=== PATIENT | female | born 1950 | race Caucasian/White ===

== ENCOUNTER → 2018-01-11 | Outpatient (REF) | payer MEDICARE, OTHER ==
[2018-01-11 12:41] LABS: ANION GAP 9 MEQ/L (8-16); BLOOD UREA NITROGEN 17 MG/DL (7-18); CALCIUM LEVEL 8.4 MG/DL (8.8-10.2); CARBON DIOXIDE LEVEL 29 MEQ/L (21-32); CHLORIDE LEVEL 105 MEQ/L (98-107); CREATININE FOR GFR 1.29 MG/DL (0.55-1.30); GLUCOSE, FASTING 168 MG/DL (70-100); POTASSIUM SERUM 4.3 MEQ/L (3.5-5.1); SODIUM LEVEL 143 MEQ/L (136-145)
[2018-01-11 13:54] LABS: ESTIMATED AVERAGE GLUCOSE 151 MG/DL (60-110); HEMOGLOBIN A1c 6.9 %
== END ==
LOC: M SFHCPLAZ 08:44
DX: E11.9 Type 2 diabetes mellitus without complications (principal); N18.3 Chronic kidney disease, stage 3 (moderate)
CPT/HCPCS: 83036

== ENCOUNTER → 2018-01-14 | Outpatient (CLI) | payer MEDICARE, OTHER | LOC: M WHC 08:12 | DX: N18.3 Chronic kidney disease, stage 3 (moderate) (principal) | CPT/HCPCS: 76775 ==

== ENCOUNTER → 2018-10-07 | Outpatient (CLI) | payer MEDICARE, OTHER ==
--- NOTE | 2018-10-26 16:16 | REPMRS ---
Patient History The patient states she has not had a clinical breast exam in over a year. Patient is postmenopausal and is nulliparous. Family history of breast cancer at age 50 or over in mother, colorectal cancer at age 50 or over in paternal aunt. Digital Woman Screen Mammo: October 07, 2018 - Exam #: [id number] Bilateral CC and MLO view(s) were taken. Technologist: Alba Cain, Technologist Prior study comparison: July 30, 2017, bilateral digital woman screen mammo, [facility]. 2016, bilateral digital mammo screening bilat, performed at [facility]. June 04, 2015, bilateral digital woman screen mammo, performed at [facility]. FINDINGS: There are scattered fibroglandular densities. There are stable nodular densities and benign calcifications bilaterally. There has been no change in the appearance of the mammogram from the prior studies. There is a mild amount of scattered fibroglandular density which is fairly symmetric. There is no interval development of dominant mass, architectural distortion, or clustered microcalcification suggestive of malignancy. 3-D tomosynthesis shows no additional findings. Assessment: BI-RADS/ACR category 2 mammogram. Benign Findings. Recommendation Routine screening mammogram of both breasts in 1 year (for women over age 40). This patient's Lifetime Breast Cancer RIsk is estimated at 17.7 %. This mammogram was interpreted with the aid of an FDA-approved computer-aided dectection system. Electronically Signed By: Beck Pedraza MD 10/26/18 [id number]
== END ==
LOC: M WHC 07:50
PROVIDERS: ATTEND Family Medicine
DX: Z12.31 Encounter for screening mammogram for malignant neoplasm of breast (principal); Z78.0 Asymptomatic menopausal state; Z80.3 Family history of malignant neoplasm of breast

== ENCOUNTER → 2019-01-24 | Outpatient (REF) | payer MEDICARE, OTHER ==
[2019-01-24 12:24] LABS: CALCIUM LEVEL 8.2 MG/DL (8.8-10.2); CREATININE FOR GFR 1.1 MG/DL (0.55-1.30); GLOMERULAR FILTRATION RATE 52.7 (>45); POTASSIUM SERUM 3.8 MEQ/L (3.5-5.1)
== END ==
LOC: M SFHCPLAZ 09:15
PROVIDERS: ATTEND Family Medicine
DX: I10 Essential (primary) hypertension (principal)
CPT/HCPCS: 36415; 80048; G0463

== ENCOUNTER 2019-03-25 10:00 | Day surgery (SDC) | payer MEDICARE, OTHER ==
[~2019-03-25] VITALS: Ht 167.6 cm; Wt 92.4 kg
[~2019-03-25 10:00] MED LIST: ATOR40TA75 PO; B-12100010 PO; BASA100I SQ; BETA0.053 TOP; D 101000 PO; ECOT81TA5 PO; ENAL20TA PO; FERR325T3 PO; FLUTISP; HYDR25TAB PO; LIDOCAINE 2% INJ 100 MG/5 ML SDV (FOR ANES.) As Ordered ONE; MAGN250T7 PO; METF-791 PO; NS 1,000 ML IV ONE; VICT18IN2; VOLT1GEL15 TOP
[2019-03-25] MEDS ORDERED: fentaNYL 100 MCG/2 ML INJECTION (J3010) As Ordered ONE (10:41)
[2019-03-25] MEDS ORDERED: PROPOFOL 200 MG/20 ML VIAL As Ordered ONE (11:08)
--- NOTE | 2019-03-25 11:25 | ROOR ---
Patient Name: Citlalli Kim Procedure Date: 03/25/2019 11:05 AM Date of : 1950 Age: 68 Room: [facility] Gender: Female Note Status: Finalized Procedure: Upper GI endoscopy Indications: Indigestion, Dysphagia, Heartburn Providers: Kal NEWSOME MD Referring MD: Hodan Galvan MD Requesting Provider: Medicines: Monitored Anesthesia Care Complications: No immediate complications. Procedure: Pre-Anesthesia Assessment: - The heart rate, respiratory rate, oxygen saturations, blood pressure, adequacy of pulmonary ventilation, and response to care were monitored throughout the procedure. The Endoscope was introduced through the mouth, and advanced to the second part of duodenum. The upper GI endoscopy was accomplished without difficulty. The patient tolerated the procedure well. Findings: The examined esophagus was normal. The Z-line was regular and was found 33 cm from the incisors. Mild inflammation was found in the gastric antrum. Biopsies were taken with a cold forceps for histology. A medium-sized hiatal hernia was present. Patchy atrophic mucosa was found in the first portion of the duodenum. Biopsies for histology were taken with a cold forceps for evaluation of celiac disease. The exam of the duodenum was otherwise normal. Impression: - Normal esophagus. Z-line regular, 33 cm from the incisors. - Mild antral gastritis. Biopsied. - Medium to large-sized hiatal hernia. - Mild duodenal mucosal atrophy in first portion. Biopsied. Recommendation: - Telephone endoscopist for pathology results in 2 weeks. - Discontinue Zantac (ranitidine). - Use Pepcid (famotidine) 20 mg PO BID. - (the script was sent to your pharmacy on file) Kal Newsome MD Kal NEWSOME MD 03/25/2019 11:25:15 AM Electronically signed by Kal NEWSOME MD Number of Addenda: 0 Note Initiated On: 03/25/2019 11:05 AM Estimated Blood Loss: Estimated blood loss: none.
--- NOTE | 2019-03-25 11:43 | ROOR ---
Patient Name: Citlalli Kim Procedure Date: 03/25/2019 11:05 AM Date of : 1950 Age: 68 Room: [facility] Gender: Female Note Status: Finalized Procedure: Colonoscopy Indications: High risk colon cancer surveillance: Personal history of colonic polyps, Surveillance: Personal history of colonic polyps (unknown histology) on last colonoscopy 5 years ago Providers: Kal NEWSOME MD Referring MD: Hodan Galvan MD Requesting Provider: Medicines: Monitored Anesthesia Care Complications: No immediate complications. Procedure: Pre-Anesthesia Assessment: - The heart rate, respiratory rate, oxygen saturations, blood pressure, adequacy of pulmonary ventilation, and response to care were monitored throughout the procedure. The Colonoscope was introduced through the anus and advanced to the terminal ileum, with identification of the appendiceal orifice and IC valve. The colonoscopy was performed without difficulty. The patient tolerated the procedure well. The quality of the bowel preparation was good. Findings: The perianal and digital rectal examinations were normal. A 5 mm polyp was found in the splenic flexure. The polyp was sessile. The polyp was removed with a cold snare. Resection and retrieval were complete. Mild sigmoid diverticulosis and small internal hemorrhoids. Pendulous/lipomatous ICV. The exam was otherwise without abnormality on direct and retroflexion views. Impression: - One 5 mm polyp at the splenic flexure, removed with a cold snare. Resected and retrieved. - Mild sigmoid diverticulosis and small internal hemorrhoids. - The examination was otherwise normal on direct and retroflexion views. Recommendation: - Repeat colonoscopy in 5 years for surveillance. Kal Newsome MD Kal NEWSOME MD 03/25/2019 11:43:14 AM Electronically signed by Kal NEWSOME MD Number of Addenda: 0 Note Initiated On: 03/25/2019 11:05 AM Estimated Blood Loss: Estimated blood loss: none.
[2019-03-25 12:13] VITALS: BP 124/75
== END 2019-03-25 12:13 | disposition home or self-care (01) ==
LOC: M OPP 10:00
PROVIDERS: ATTEND Internal Medicine Gastroenterology
DX: Z12.11 Encounter for screening for malignant neoplasm of colon (principal); Z86.010 Personal history of colon polyps; K63.5 Polyp of colon; K64.8 Other hemorrhoids; K57.30 Diverticulosis of large intestine without perforation or abscess without bleeding; K29.70 Gastritis, unspecified, without bleeding; K44.9 Diaphragmatic hernia without obstruction or gangrene; K31.89 Other diseases of stomach and duodenum; K30 Functional dyspepsia; R13.10 Dysphagia, unspecified; Z79.82 Long term (current) use of aspirin; Z79.84 Long term (current) use of oral hypoglycemic drugs; Z79.899 Other long term (current) drug therapy; Z87.891 Personal history of nicotine dependence
CPT/HCPCS: 43239; 45385; 88305; J3010

== ENCOUNTER → 2019-10-14 | Outpatient (CLI) | payer MEDICARE, OTHER ==
[~2019-10-14] MED LIST changes: -LIDOCAINE 2% INJ 100 MG/5 ML SDV (FOR ANES.) As Ordered ONE; -NS 1,000 ML IV ONE
[2019-10-14 11:54] LABS: CALCIUM LEVEL 9.2 MG/DL (8.8-10.2); CREATININE FOR GFR 1.24 MG/DL (0.55-1.30); GLOMERULAR FILTRATION RATE 45.9 (>45); POTASSIUM SERUM 3.9 MEQ/L (3.5-5.1)
== END ==
LOC: M LAB 10:50
PROVIDERS: ATTEND Internal Medicine Endocrinology, Diabetes & Metabolism
DX: E11.22 Type 2 diabetes mellitus with diabetic chronic kidney disease (principal)

== ENCOUNTER → 2019-10-26 | Outpatient (CLI) | payer MEDICARE, OTHER ==
[~2019-10-26] MED LIST changes: -METF-791 PO; +METF-838 PO
--- NOTE | 2019-10-26 09:56 | REPMRS ---
Patient History The patient states she has not had a clinical breast exam in over a year. Family history of breast cancer at age 50 or over in mother, colorectal cancer at age 50 or over in paternal aunt. Digital Woman Screen Mammo: October 26, 2019 - Exam #: [id number] Bilateral CC and MLO view(s) were taken. Technologist: Loree Osorio, Technologist Prior study comparison: October 07, 2018, bilateral digital woman screen mammo performed at [facility]. July 30, 2017, bilateral digital woman screen mammo, performed [facility]. 2017, bilateral digital mammo screening bilat, performed at [facility]. FINDINGS: There are scattered fibroglandular densities. The Volpara volumetric breast density category is:B. There has been no change in the appearance of the mammogram from the prior studies. There is a mild amount of scattered fibroglandular density which is fairly symmetric. There is no interval development of dominant mass, architectural distortion, or grouped microcalcification suggestive of malignancy. 3-D tomosynthesis shows no additional findings. Assessment: BI-RADS/ACR category 1 mammogram. Negative Mammogram. Recommendation Routine screening mammogram of both breasts in 1 year (for women over age 40). This patient's Lifetime Breast Cancer Risk is estimated at 16.8 %. This mammogram was interpreted with the aid of an FDA-approved computer-aided dectection system. Electronically Signed By: Beck Pedraza MD 10/26/19 [id number]
== END ==
LOC: M WHC 08:46
PROVIDERS: ATTEND Family Medicine
DX: Z12.31 Encounter for screening mammogram for malignant neoplasm of breast (principal); Z80.3 Family history of malignant neoplasm of breast

== ENCOUNTER → 2020-03-12 | Outpatient (REF) | payer MEDICARE, OTHER ==
[~2020-03-12] MED LIST changes: -ENAL20TA PO; +ENAL20TA11 PO
== END ==
LOC: M LAB REF 17:25
PROVIDERS: ATTEND Physician Assistant
DX: D23.4 Other benign neoplasm of skin of scalp and neck (principal)
CPT/HCPCS: 11102; 88305; G0463

== ENCOUNTER → 2020-03-28 | Outpatient (REF) | payer MEDICARE ==
[2020-03-28 11:17] LABS: FREE T4 1.04 NG/DL (0.76-1.46); THYROID STIMULATING HORMONE 2.1 uIU/ML (0.358-3.740)
== END ==
LOC: M SFHCPLAZ 08:48
PROVIDERS: ATTEND Family Medicine
DX: E01.0 Iodine-deficiency related diffuse (endemic) goiter (principal)

== ENCOUNTER → 2020-03-28 | Outpatient (CLI) | payer MEDICARE ==
--- NOTE | 2020-04-02 11:22 | REPPI ---
RIGHT TIBIA/FIBULA SERIES: 03/28/20. CLINICAL: Right chew pain. TECHNIQUE: AP and lateral views of the right tibia/fibula. FINDINGS: Evidence for prior knee replacement. The osseous structures, joint spaces and surrounding soft tissues are otherwise unremarkable. IMPRESSION: Essentially unremarkable right tibia/fibula radiographs. MTDD
== END ==
LOC: M PLAIMG 08:49
PROVIDERS: ATTEND Family Medicine
DX: M79.661 Pain in right lower leg (principal); Z96.651 Presence of right artificial knee joint; E01.0 Iodine-deficiency related diffuse (endemic) goiter
CPT/HCPCS: 36415; 73590; 84439; 84443; G0463

== ENCOUNTER → 2020-03-30 | Outpatient (CLI) | payer MEDICARE, OTHER ==
--- NOTE | 2020-04-04 16:48 | REP ---
INDICATION: E01.0 THYROMEGALY COMPARISON: None. TECHNIQUE: Rios scale and color evaluation of the thyroid gland using the linear high frequency transducer. FINDINGS: The thyroid gland is heterogeneous, enlarged, and includes multiple bilateral nodules. Isthmus measures 4.3 mm in with. Right lobe measures 5.0 x 2.0 x 1.6 cm with multiple nodules including complex upper pole nodule measuring 1.4 x 1.2 x 0.5 cm, complex midpole nodule measuring 1.5 x 1.2 x 1.2 cm, and complex lower pole nodule measuring 1.1 x 1.3 x 0.9 cm. Left lobe measures 4.9 x 2.5 x 2.9 cm and is dominated by a large complex predominantly cystic lesion with mural nodule and septations measuring 3.4 x 2.9 x 2.4 cm. IMPRESSION: Multinodular goiter with multiple complex indeterminate lesions. <Electronically signed by Kofi Oviedo > 04/04/20 [id number]
== END ==
LOC: M WHC 12:39
PROVIDERS: ATTEND Family Medicine
DX: E04.2 Nontoxic multinodular goiter (principal)

== ENCOUNTER → 2020-05-02 | Outpatient (CLI) | payer MEDICARE ==
[2020-05-02 13:53] LABS: CREATININE FOR GFR 1.31 MG/DL (0.55-1.30); POTASSIUM SERUM 3.9 MEQ/L (3.5-5.1); THYROID STIMULATING HORMONE 2.08 uIU/ML (0.358-3.740)
== END ==
LOC: M WUC 10:18
PROVIDERS: ATTEND Internal Medicine Endocrinology, Diabetes & Metabolism
DX: E11.22 Type 2 diabetes mellitus with diabetic chronic kidney disease (principal); E04.0 Nontoxic diffuse goiter

== ENCOUNTER → 2020-05-31 | Outpatient (CLI) | payer MEDICARE ==
[2020-05-31 14:28] LABS: CALCIUM LEVEL 9.3 MG/DL (8.8-10.2); CREATININE FOR GFR 1.45 MG/DL (0.55-1.30); GLOMERULAR FILTRATION RATE 38.2 (>45); POTASSIUM SERUM 4.4 MEQ/L (3.5-5.1)
== END ==
LOC: M WUC 09:39
PROVIDERS: ATTEND Internal Medicine Endocrinology, Diabetes & Metabolism
DX: E04.0 Nontoxic diffuse goiter (principal)

== ENCOUNTER → 2020-07-26 | Outpatient (CLI) | payer MEDICARE, OTHER ==
[~2020-07-26] MED LIST changes: +HYDR-3490 PO; -HYDR25TAB PO
[2020-07-26 14:50] LABS: CALCIUM LEVEL 8.6 MG/DL (8.8-10.2); CREATININE FOR GFR 1.26 MG/DL (0.55-1.30); POTASSIUM SERUM 4.5 MEQ/L (3.5-5.1)
== END ==
LOC: M WUC 10:04
PROVIDERS: ATTEND Internal Medicine Endocrinology, Diabetes & Metabolism
DX: E11.22 Type 2 diabetes mellitus with diabetic chronic kidney disease (principal)

== ENCOUNTER 2020-09-20 16:20 | Inpatient (IN) | payer OTHER, MEDICARE ==
[~2020-09-20] VITALS: Ht 167.6 cm; Wt 96.5 kg
[~2020-09-20 16:20] MED LIST changes: -VICT18IN2; +VICT18IN2 SC
[2020-09-20 17:04] LABS: BASO # 0.1 10^3/uL (0.0-0.2); BASO % 0.4 % (0.0-1.0); EOS % 0.1 % (0.0-3.0); HEMATOCRIT 40.5 % (36.0-47.0); HEMOGLOBIN 13.2 g/dl (12.0-15.5); LYMPH # 0.9 10^3/uL (1.5-5.0); LYMPH % 5.5 % (24.0-44.0); MEAN CORPUSCULAR HEMOGLOBIN 30.1 pg (27.0-33.0); MEAN CORPUSCULAR HGB CONC 32.6 g/dl (32.0-36.5); MEAN CORPUSCULAR VOLUME 92.5 fl (80.0-96.0); MONO # 0.9 10^3/uL (0.0-0.8); MONO % 5.9 % (2.0-8.0); NEUTROPHILS # 13.5 10^3/uL (1.5-8.5); NEUTROPHILS % 87.4 % (36.0-66.0); PLATELET COUNT, AUTOMATED 229 10^3/uL (150-450); RED BLOOD COUNT 4.38 10^6/uL (4.00-5.40); WHITE BLOOD COUNT 15.5 10^3/uL (4.0-10.0)
[2020-09-20 17:22] LABS: CALCIUM LEVEL 8.7 MG/DL (8.8-10.2); CREATININE FOR GFR 1.16 MG/DL (0.55-1.30); GLOMERULAR FILTRATION RATE 49.5 (>45); POTASSIUM SERUM 5.1 MEQ/L (3.5-5.1)
[2020-09-20] MEDS ORDERED: GLUCOSE 4GM CHEW TABLET PO PRN (17:40)
[2020-09-20] MEDS ORDERED: GLUCAGON INJ 1MG VIAL SC PRN (17:40)
[2020-09-20] MEDS ORDERED: DEXTROSE 50% 50 ML SYRINGE IV PRN (17:40)
[2020-09-20] MEDS ORDERED: ONDANSETRON 4MG/2ML VIAL IV PRN (17:40)
[2020-09-20] MEDS ORDERED: FAMO1TAB11 PO (17:50)
[2020-09-20] MEDS ORDERED: D31000TA2 PO (17:50)
[2020-09-20] MEDS: traMADol 50 MG TAB PO PRN (18:22)
[2020-09-20] MEDS: NS 1,000 ML IV SCH (18:22)
[2020-09-20] MEDS ORDERED: CALCIUM CARBONATE 500 MG CHEW U/D PO PRN (18:30)
--- NOTE | 2020-09-20 18:38 | REP ---
INDICATION: Left humerous fracture. COMPARISON: None. TECHNIQUE: CT of the left shoulder and proximal humerus without IV contrast. FINDINGS: There is an impacted fracture of the surgical neck of the humerus into the humeral head. There is no humeral head dislocation. Additionally, there is an accompanying comminuted fracture of the proximal humeral shaft. The distal humeral shaft fracture fragment is angulated laterally. IMPRESSION: Proximal left humerus fracture as described. <Electronically signed by Denilson Mtz > 09/20/20 [id number]
--- NOTE | 2020-09-20 18:58 | HPEPDOC ---
General Date of Admission Sep 20, 2020 Date of Service: Sep 20, 2020 Chief Complaint The patient is a 69-year-old female admitted with a reason for visit of Arm Injury/Txf From [place]. Source: Patient History of Present Illness Mrs. Kim is a 69-year-old female with the results as type II and osteopenia who comes from [facility] with bilateral humerus fractures. 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 Around 9:15 AM, she was turning and tripped. She fell with outstretched arms. She denies any lightheadedness or dizziness, chest pain, palpitations. She remembers falling and did not blackout. Once she was on the ground, she had pain and did not try to stand up. He was called and she was brought to [facility]. Her left humerus had lateral angulation. Right humerus had comminuted fracture. [facility] spoke with Dr. Lyons, who recommended patient be evaluated in the ED. I was present with Dr. Lyons in seeing the patient. Dr. Lyons discussed risks and benefits of having surgery versus conservative measures with a sling. Patient decided to have right arm treated conservatively and left arm to proceed with open reduction and internal fixation. Patient will be admitted for bilateral humerus fractures. Home Medications Scheduled Aspirin (Ecotrin) 81 Mg Tablet.dr, 81 MG PO DAILY, (Reported) Atorvastatin Calcium (Atorvastatin Calcium) 40 Mg Tablet, 40 MG PO QPM, (Reported) Cholecalciferol (Vitamin D3) (Vitamin D3) 1,000 Unit Tablet, 1,000 UNITS PO QPM, (Reported) Cyanocobalamin (Vitamin B-12) (Vitamin B-12) 1,000 Mcg Capsule, 1,000 MCG PO QPM, (Reported) Enalapril Maleate (Enalapril Maleate) 20 Mg Tablet, 20 MG PO BID, (Reported) Famotidine (Famotidine) 20 Mg Tablet, 20 MG PO BID, (Reported) Ferrous Sulfate (Ferrous Sulfate) 325 Mg Tablet.dr, 325 MG PO DAILY, (Reported) Fluticasone Propionate (Fluticasone Propionate) 16 Gm [place].susp, 1 SPRAY NA DAILY, (Reported) Liraglutide (Victoza 3-John) 0.6 Mg/0.1 Ml Pen.injctr, 1.8 MG SC DAILY, (Reported) Magnesium Oxide (Magnesium) 250 Mg Tablet, 250 MG PO QPM, (Reported) Metformin HCl (Metformin HCl ER) 500 Mg Tab.er.24h, 500 MG PO BID, (Reported) Allergies Coded Allergies: No Known Allergies (Unverified , 03/23/19) Past Medical History Medical History 1. Diabetes mellitus type 2 2. Hyperlipidemia 3. Hypertension 4. GERD 5. Hypomagnesemia 6. Vitamin B12 deficiency 7. Iron deficiency 8. CKD stage III Surgical History 1. Total right knee replacement in August 2016 2. Cholecystectomy 1998 Family History Father: , history of diabetes mellitus type 2 Mother: , history of breast cancer, kidney cancer, coronary artery disease, diabetes mellitus type 2 Social History * Smoker: former Smoker (quit 30 years ago, smoked less than 10 years, was a social smoker) Alcohol: occationally (occasionally drinks wine with dinner) Drugs: denies A-FIB/CHADSVASC A-FIB History Current/History of A-Fib/PAF?: No Review of Systems Constitutional: Denies: Chills, Fever Eyes: Denies: Vision change ENT: Denies: Sore Throat Skin: Denies: Rash Pulmonary: Denies: Dyspnea Cardiovascular: Denies: Chest Pain Gastrointestinal: Reports: Nausea; Denies: Abdominal Pain Genitourinary: Denies: Dysuria Hematologic: Denies: Bruising Musculoskeletal: Reports: Arm Pain (bilaterally) Neurological: Denies: Numbness Psych: Denies: Anxiety, Depression Physical Examination General Exam: Positive: Alert, Cooperative Eye Exam: Positive: EOMI; Negative: Sclera icteric Neck Exam: Positive: Supple Chest Exam: Positive: Clear to auscultation; Negative: Rales, Rhonchi, Wheezing Heart Exam: Positive: Rate Normal, Regular Rhythm Abdomen Exam: Positive: Normal bowel sounds, Soft; Negative: Tenderness Extremity Exam: Positive: Other; Negative: Edema Neuro Exam: Positive: Normal Speech Psych Exam: Positive: Mental status NL, Mood NL Vital Signs Vital Signs Date Time Temp Pulse Resp B/P (MAP) Pulse Ox O2 Delivery O2 Flow Rate FiO2 09/20/20 17:35 85 97 09/20/20 17:30 148/67 (94) 09/20/20 17:05 Room Air 09/20/20 16:44 98.6 18 Laboratory Data Labs 24H Laboratory Tests 2 09/20/20 16:41: Immature Granulocyte % (Auto) 0.7, Neutrophils (%) (Auto) 87.4H, Lymphocytes (%) (Auto) 5.5L, Monocytes (%) (Auto) 5.9, Eosinophils (%) (Auto) 0.1, Basophils (%) (Auto) 0.4, Neutrophils # (Auto) 13.5H, Lymphocytes # (Auto) 0.9L, Monocytes # (Auto) 0.9H, Eosinophils # (Auto) 0.0, Basophils # (Auto) 0.1, Nucleated Red Blood Cells % (auto) 0.0, Anion Gap 9, Glomerular Filtration Rate 49.5, Calcium Level 8.7L CBC/BMP Laboratory Tests 09/20/20 16:41 Assessment/Plan Mrs. Kim is a 69-year-old female with the results as type II and osteopenia who comes from [facility] with bilateral humerus fractures. Orthopedic surgery, Dr. Lyons was consulted. Plan to have right arm treated conservatively and left arm to proceed with open reduction internal fixation. Currently pending OR availability Plan / VTE VTE Prophylaxis Ordered?: Yes Plan Plan 1. Bilateral humerus fractures Secondary to mechanical fall in the setting of osteopenia Continue vitamin D supplementation. Check vitamin D level Start oral calcium Orthopedic surgery following, recommendations appreciated Plan for right arm to be treated conservatively Plan for left arm to proceed with open reduction internal fixation Pain control with acetaminophen and tramadol 2. Osteopenia Demonstrated on imaging Continue vitamin D supplementation and add on calcium supplementation 3. CKD stage III Creatinine at baseline Avoid nephrotoxic agents Anticipate difficulty in eating and drinking due to bilateral arm fractures. Gentle IVF 4. Diabetes mellitus type 2 Hold metformin and Victoza Carbohydrate consistent diet Slight scale insulin 5. Hypertension Continue enalapril 6. DVT prophylaxis Lovenox Disposition: Pending the OR availability PENELOPE ESTEBAN DO Sep 20, 2020 18:58
[2020-09-20 19:08] LABS: INR 1.05; PARTIAL THROMBOPLASTIN TIME 28.1 SECONDS (24.2-38.5); PROTHROMBIN TIME 13.9 SECONDS (12.5-14.3)
[2020-09-20] MEDS: ACETAMINOPHEN TAB 650MG DOSE (2X325MG) PO PRN (19:30)
[2020-09-20 22:00] VITALS: BP 129/85
[2020-09-20] MEDS: HumaLOG INSULIN (NovoLOG) PER UNIT SC SCH (22:13)
[2020-09-20] MEDS ORDERED: MORPHINE 2 MG/ML 1ML VIAL (J2270) IV ONE (23:25)
[2020-09-20] MEDS: VITAMIN D 1,000 INTERNATIONAL UNITS TABLET PO SCH (23:35)
[2020-09-20] MEDS: FAMOTIDINE 20 MG TAB PO SCH (23:35)
[2020-09-20] MEDS: ATORVASTATIN 20 MG TAB PO SCH (23:35)
[2020-09-20] MEDS: CYANOCOBALAMIN 500 MCG TAB PO SCH (23:36)
[2020-09-20] MEDS: ENALAPRIL MALEATE 10 MG TAB PO SCH (23:41)
[2020-09-21] MEDS: traMADol 50 MG TAB PO PRN ×3 (01:38→16:30)
[2020-09-21] MEDS: NS 1,000 ML IV SCH ×2 (04:53→16:29)
[2020-09-21 04:57] VITALS: BP 142/65
[2020-09-21 07:22] LABS: CALCIUM LEVEL 8.1 MG/DL (8.8-10.2); CREATININE FOR GFR 1.05 MG/DL (0.55-1.30); GLOMERULAR FILTRATION RATE 55.5 (>45); MAGNESIUM LEVEL 1.7 MG/DL (1.8-2.4); POTASSIUM SERUM 4.2 MEQ/L (3.5-5.1)
[2020-09-21] MEDS: FAMOTIDINE 20 MG TAB PO SCH ×2 (07:57→21:04)
[2020-09-21] MEDS: HumaLOG INSULIN (NovoLOG) PER UNIT SC SCH ×4 (07:57→21:00)
[2020-09-21] MEDS: FERROUS SULFATE 325MG TAB PO SCH (07:57)
[2020-09-21] MEDS: FLUTICASONE PROP 0.05% NASAL SPRAY 16 GM (FLONASE) SCH (07:58)
[2020-09-21] MEDS: ENALAPRIL MALEATE 10 MG TAB PO SCH (07:59)
[2020-09-21] MEDS ORDERED: ENOXAPARIN 40MG/0.4ML SYRINGE (J1650 PER 10MG) SC SCH (09:00)
[2020-09-21 09:38] LABS: TOTAL 25(OH) VITAMIN D 36.1 NG/ML (30.0-100.0)
[2020-09-21] MEDS ORDERED: MORPHINE 2 MG/ML 1ML VIAL (J2270) IV PRN (09:45)
--- NOTE | 2020-09-21 10:31 | ECGEPIP ---
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 Nonspecific T wave flattening. No prior tracing for comparison. Clincal correlation advised Electronically Signed on 09-21-2020 10:30:56 EDT by Balbir Gross
--- NOTE | 2020-09-21 11:22 | IPNPDOC ---
Subjective Date Seen The patient was seen on 09/21/20. Subjective Chief Complaint/HPI Mrs. Kim is a 69-year-old female with the results as type II and osteopenia who comes from [facility] with bilateral humerus fractures. This morning, she was complaining of bilateral arm pain. She was trying to eat breakfast and drink from a cup with great difficulty. Otherwise, denies chest pain or dyspnea. Planning to go to the OR tomorrow for ORIF of left arm. Objective Physical Examination General Exam: Positive: Alert, Cooperative Eye Exam: Positive: EOMI; Negative: Sclera icteric Neck Exam: Positive: Supple Chest Exam: Positive: Clear to auscultation; Negative: Rales, Rhonchi, Wheezing Heart Exam: Positive: Rate Normal, Regular Rhythm Abdomen Exam: Positive: Normal bowel sounds, Soft; Negative: Tenderness Extremity Exam: Positive: Other; Negative: Edema Neuro Exam: Positive: Normal Speech Psych Exam: Positive: Mental status NL, Mood NL Assessment /Plan Assessment Mrs. Kim is a 69-year-old female with the results as type II and osteopenia who comes from [facility] with bilateral humerus fractures. Orthopedic surgery, Dr. Lyons was consulted. Plan to have right arm treated conservatively and left arm to proceed with open reduction internal fixation. Planning to go to the OR tomorrow morning Plan/VTE VTE Prophylaxis Ordered?: Yes Plan 1. Bilateral humerus fractures Secondary to mechanical fall in the setting of osteopenia Continue vitamin D supplementation. Check vitamin D level Start oral calcium Orthopedic surgery following, recommendations appreciated Plan for right arm to be treated conservatively Plan for left arm to proceed with open reduction internal fixation Pain control with acetaminophen and tramadol. Morphine for severe pain 2. Osteopenia Demonstrated on imaging Continue vitamin D supplementation and add on calcium supplementation 3. CKD stage III Creatinine at baseline Avoid nephrotoxic agents Anticipate difficulty in eating and drinking due to bilateral arm fractures. Gentle IVF 4. Diabetes mellitus type 2 Hold metformin and Victoza Carbohydrate consistent diet Slight scale insulin 5. Hypertension Hold enalapril tomorrow and 2 days after surgery -Start amlodipine today 6. DVT prophylaxis Lovenox Disposition: Planning for OR tomorrow morning VS, I&O, 24H, Fishbone Vital Signs/I&O Vital Signs Date Time Temp Pulse Resp B/P (MAP) Pulse Ox O2 Delivery O2 Flow Rate FiO2 09/21/20 08:28 17 09/21/20 07:59 187/85 09/21/20 04:57 97.7 80 97 Room Air 09/20/20 21:30 2.0 I&O- Last 24 Hours up to 6 AM 09/21/20 06:00 Intake Total 744 ml Output Total 600 ml Balance 144 ml Laboratory Data 24H LABS Laboratory Tests 2 09/20/20 16:41: Immature Granulocyte % (Auto) 0.7, Neutrophils (%) (Auto) 87.4H, Lymphocytes (%) (Auto) 5.5L, Monocytes (%) (Auto) 5.9, Eosinophils (%) (Auto) 0.1, Basophils (%) (Auto) 0.4, Neutrophils # (Auto) 13.5H, Lymphocytes # (Auto) 0.9L, Monocytes # (Auto) 0.9H, Eosinophils # (Auto) 0.0, Basophils # (Auto) 0.1, Nucleated Red Blood Cells % (auto) 0.0, Anion Gap 9, Glomerular Filtration Rate 49.5, Calcium Level 8.7L 09/20/20 18:34: Prothrombin Time 13.9, Prothromb Time International Ratio 1.05, Activated Partial Thromboplast Time 28.1 09/20/20 22:09: Bedside Glucose (Misc Panel) 189H 09/21/20 06:03: Bedside Glucose (Misc Panel) 153H 09/21/20 06:30: Anion Gap 3L, Glomerular Filtration Rate 55.5, Calcium Level 8.1L, Magnesium Level 1.7L, 25-Hydroxy Vitamin D Total 36.1 CBC/BMP Laboratory Tests 09/20/20 16:41 09/21/20 06:30 PENELOPE ESTEBAN DO Sep 21, 2020 11:22
[2020-09-21] MEDS: amLODIPine 5 MG TAB PO SCH (11:57)
--- NOTE | 2020-09-21 12:26 | CR ---
CONSULTATION DATE: 09/20/2020 CHIEF COMPLAINT: Bilateral proximal humerus fractures. HISTORY OF PRESENT ILLNESS: This 69-year-old female is seen today upon transfer from [facility]. She had a ground-level fall. She tripped and fell on outstretched upper extremities. She was found to have bilateral proximal humerus fractures. She is right-hand dominant. This occurred this morning at 9:20 a.m. She has no past problems or issues with the upper extremities. MEDICAL HISTORY: 1. Diabetes. 2. Hypertension. 3. Dyslipidemia. MEDICATIONS: Nasal spray, ferrous sulfate, aspirin, insulin, famotidine, enalapril, vitamin B12, vitamin D, Lipitor, calcium carbonate as needed. ALLERGIES: No known drug allergies. SURGICAL HISTORY: 1. Total knee arthroplasty 4 years ago. 2. Laparoscopic cholecystectomy 20 years ago. SOCIAL HISTORY: She is retired. 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 Nonsmoker. PHYSICAL EXAMINATION: Well-appearing 69-year-old female. Vital signs are stable. She appears well. Closed injuries to both upper extremities. Normal sensation, motor function to axillary nerve as well as median, radial, and ulnar nerves. Normal motor function of the same plus proximal interosseous nerve (PIN)/anterior interosseous nerve (AIN). Strong radial pulse. Arms warm, well perfused. She has body mass index (BMI) of 30. No other pain or problems. Compartments are soft. No pain at the elbows, hands, or wrists. Radiographs were reviewed from [facility]. There appears to be a 3-part, minimally displaced, minimally angulated fracture of the right proximal humerus. Left shoulder and humerus x-rays demonstrate a proximal one-third, slightly oblique spiral fracture of the upper end of the humerus at the metaphysial area without obvious intra-articular extension. This appears to be aligned in valgus alignment up to 20 degrees. ASSESSMENT AND PLAN: This 69-year-old female has bilateral proximal humerus fractures. We discussed the pros, consultation, risks, and benefits of conservative, nonoperative management for both upper extremity fractures, including splint on the right side as well as cuff and collar with a sugar-tong splint, possible hanging arm cast on the left side. Other options for her would be unilateral or bilateral open reduction, internal fixation for both proximal humerus fractures. One reasonable option for her would be left humerus open reduction, internal fixation alone, as this is the more unstable and likely painful fracture that would possibly benefit more from surgical fixation given the malalignment. We discussed the pros, cons, risks, and benefits of each method of treatment. We discussed surgical management, open reduction, internal fixation of the left humerus fracture plating. Possible surgical risks include, but not limited to, infection, pain, stiffness, weakness, damage to surrounding structures, neurovascular injury, damage to the radial nerve, possible wrist drop can be permanent in select cases, as well as delayed mal or nonunion, damage to surrounding structures, anesthetic complications, blood clots, , and other risks. She wished to go ahead with left humerus open reduction, internal fixation. I consented her and marked the left upper extremity for this. This may be done by myself or possible Dr. Glass , as he is education rn on the weekend on Thursday and Thursday, if he is interested in taking over management. I will phone him and ask him in regard to the case and also let the patient know in regard to the plan as well, possibly either by myself or by a separate physician on the weekend. In the meantime, she will be admitted by the hospitalist service, and I have spoken directly with them. In the meantime, she will be diet as tolerated while we determine timing of surgery. Patient understands and had no further questions. IN the meantime, they will be placing upper extremity bilateral splints and bilateral upper extremity slings and they are able to flex and extend her elbows, but they will need high-level nursing care.
[2020-09-21 14:00] VITALS: BP 155/69
[2020-09-21] MEDS: ACETAMINOPHEN TAB 650MG DOSE (2X325MG) PO PRN (16:30)
--- NOTE | 2020-09-21 20:43 | REPVR ---
PROCEDURE INFORMATION: Exam: CT Right Upper Extremity Without Contrast, Shoulder Exam date and time: 09/21/2020 7:46 PM Age: 69 years old Clinical indication: Injury or trauma; Fall; Blunt trauma (contusions or hematomas); Shoulder; Right; Additional info: Right proximal humerus fracture with 3d recons TECHNIQUE: Imaging protocol: CT of the Right upper extremity without contrast was performed. Exam focused on the shoulder. Radiation optimization: All CT scans at this facility use at least one of these dose optimization techniques: automated exposure control; mA and/or kV adjustment per patient size (includes targeted exams where dose is matched to clinical indication); or iterative reconstruction. COMPARISON: No relevant prior studies available. FINDINGS: Bones/joints: There is a comminuted impacted fracture of the head and surgical neck of the right humerus. The metaphysis is superiorly impacted into the base of the humeral head and along the undersurface of the glenoid. Fractures extend into the lesser and greater tuberosities of the right humerus. Humeral head is mildly inferiorly subluxed. Small bone fragments are present in the glenohumeral joint. Lipohemarthrosis in the glenohumeral joint. Scapula appears intact. Normal alignment at the acromioclavicular joint. Mild acromioclavicular joint osteoarthritis. Soft tissues: Generalized subcutaneous and mild muscular edema in the right shoulder. Calcified and noncalcified nodules in the thyroid gland measuring up to 2.5 cm. IMPRESSION: Comminuted impacted fracture of the proximal humerus with lipohemarthrosis. Mild inferior subluxation of the humeral head. Electronically signed by: Sujit Dougherty On 09/21/2020 20:43:49 PM
--- NOTE | 2020-09-21 20:52 | REPVR ---
PROCEDURE INFORMATION: Exam: XR Right Shoulder Exam date and time: 09/21/2020 6:52 PM Age: 69 years old Clinical indication: Other: Bilateral proximal humerus fracture TECHNIQUE: Imaging protocol: XR Right shoulder. Views: 2 or more views. COMPARISON: No relevant prior studies available. FINDINGS: Bones/joints: There is a comminuted impacted fracture of the humeral head and surgical neck. The greater tuberosity is laterally subluxed 10 mm from the humeral head. The metaphysis is impacted into the humeral head and inferior surface of the glenoid. Humeral head is subluxed 3.0 cm below the acromion. Moderate glenohumeral joint effusion. Normal acromioclavicular alignment. Clavicle and scapula appear intact. Soft tissues: Generalized soft tissue swelling. IMPRESSION: Comminuted impacted fracture of the proximal humerus. PROCEDURE INFORMATION: Exam: XR Left Shoulder Exam date and time: 09/21/2020 6:52 PM Age: 69 years old Clinical indication: Other: Bilateral proximal humerus fracture TECHNIQUE: Imaging protocol: XR Left shoulder. Views: 2 or more views. COMPARISON: No relevant prior studies available. FINDINGS: Bones/joints: There is a comminuted angulated fracture of the humeral diaphysis. Two small bone fragments are displaced into the adjacent soft tissues. Impacted fracture of the surgical neck of the humerus. The metaphysis impacted into the inferior surface of the humeral head. Mild inferior subluxation of the humeral head with small joint effusion. Clavicle and scapula appear intact. Soft tissues: Soft tissue swelling. IMPRESSION: 1. Impacted fracture of the surgical neck of the humerus. 2. Angulated comminuted fracture of the humeral diaphysis. Electronically signed by: Sujit Dougherty On 09/21/2020 20:53:04 PM
[2020-09-21] MEDS: CYANOCOBALAMIN 500 MCG TAB PO SCH (21:04)
[2020-09-21] MEDS: VITAMIN D 1,000 INTERNATIONAL UNITS TABLET PO SCH (21:04)
[2020-09-21] MEDS: ATORVASTATIN 20 MG TAB PO SCH (21:05)
--- NOTE | 2020-09-21 21:54 | REPVR ---
PROCEDURE INFORMATION: Exam: XR Right Humerus Exam date and time: 09/21/2020 6:52 PM Age: 69 years old Clinical indication: Other: Bilateral proximal humerus fracture TECHNIQUE: Imaging protocol: XR Right humerus. Views: 2 or more views. COMPARISON: CT-[facility] WITHOUT CONTRAST LEFT 09/20/2020 6:01 PM FINDINGS: Bones/joints: There is a comminuted impacted fracture of the humeral head and surgical neck of the humerus. The greater tuberosity is laterally subluxed 10 mm from the humeral head. The metaphysis is impacted into the humeral head and inferior surface of the glenoid. Humeral head is subluxed 3.0 cm below the acromion. Moderate glenohumeral joint effusion. Normal acromioclavicular alignment. Clavicle and scapula appear intact. Soft tissues: Generalized soft tissue swelling. IMPRESSION: Comminuted impacted fracture of the proximal humerus. PROCEDURE INFORMATION: Exam: XR Left Humerus Exam date and time: 09/21/2020 6:52 PM Age: 69 years old Clinical indication: Other: Bilateral proximal humerus fracture TECHNIQUE: Imaging protocol: XR Left humerus. Views: 2 or more views. COMPARISON: CT-[facility] WITHOUT CONTRAST LEFT 09/20/2020 6:01 PM FINDINGS: Bones/joints: There is a comminuted angulated fracture of the humeral diaphysis. Two small bone fragments are displaced into the adjacent soft tissues. Impacted fracture of the surgical neck of the humerus. The neural humeral metaphysis impacted into the inferior surface of the humeral head. Mild inferior subluxation of the humeral head with small joint effusion. Clavicle and scapula appear intact. Soft tissues: Soft tissue swelling. IMPRESSION: 1. Impacted fracture of the surgical neck of the humerus. 2. Angulated comminuted fracture of the humeral diaphysis. Electronically signed by: Sujit Dougherty On 09/21/2020 21:54:27 PM
[2020-09-21 22:00] VITALS: BP 164/79
[2020-09-22] MEDS: NS 1,000 ML IV SCH ×3 (05:06→20:20)
[2020-09-22] MEDS: ACETAMINOPHEN TAB 650MG DOSE (2X325MG) PO PRN ×3 (05:07→20:20)
[2020-09-22] MEDS: traMADol 50 MG TAB PO PRN ×3 (05:07→20:19)
[2020-09-22 06:00] VITALS: BP 162/77
[2020-09-22 06:08] LABS: HEMATOCRIT 30.3 % (36.0-47.0); MEAN CORPUSCULAR HEMOGLOBIN 30.3 pg (27.0-33.0); MEAN CORPUSCULAR VOLUME 91.8 fl (80.0-96.0); PLATELET COUNT, AUTOMATED 155 10^3/uL (150-450); WHITE BLOOD COUNT 7.2 10^3/uL (4.0-10.0)
[2020-09-22 06:23] LABS: BLOOD UREA NITROGEN 13 MG/DL (7-18); CARBON DIOXIDE LEVEL 25 MEQ/L (21-32); CHLORIDE LEVEL 107 MEQ/L (98-107); CREATININE FOR GFR 0.93 MG/DL (0.55-1.30); GLOMERULAR FILTRATION RATE > 60.0 (>45); GLUCOSE, FASTING 186 MG/DL (70-100); POTASSIUM SERUM 3.8 MEQ/L (3.5-5.1); SODIUM LEVEL 138 MEQ/L (136-145)
[2020-09-22] MEDS: HumaLOG INSULIN (NovoLOG) PER UNIT SC SCH ×4 (06:39→20:20)
[2020-09-22] MEDS ORDERED: MIDAZOLAM INJ 2MG/2ML VIAL (J2250 PER 1MG) As Ordered ONE (06:43)
[2020-09-22] MEDS ORDERED: fentaNYL 100 MCG/2 ML INJECTION (J3010) As Ordered ONE (06:43)
[2020-09-22] MEDS ORDERED: ePHEDrine SULFATE 25 MG/5 ML(5MG/ML) SYRINGE As Ordered ONE (06:44)
[2020-09-22] MEDS ORDERED: PHENYLephrine 500MCG 5ML (100MCG/ML) SYRINGE As Ordered ONE (06:44)
[2020-09-22] MEDS ORDERED: propofoL 200 MG/20 ML VIAL As Ordered ONE (06:44)
[2020-09-22] MEDS ORDERED: dexameTHASONE 4 MG/ML 1ML VIAL (J1100 PER 1MG) As Ordered ONE (06:44)
[2020-09-22] MEDS ORDERED: SUGAMMADEX SODIUM 500 MG/5 ML VIAL (BRIDION) As Ordered ONE (06:44)
[2020-09-22] MEDS ORDERED: LIDOCAINE 2% 100MG/5ML SDV (FOR ANES.) As Ordered ONE (06:44)
[2020-09-22] MEDS ORDERED: ONDANSETRON 4MG/2ML VIAL As Ordered ONE (06:44)
[2020-09-22] MEDS ORDERED: ROCURONIUM BROMIDE 50 MG/5 ML VIAL As Ordered ONE (06:44)
[2020-09-22] MEDS: ASPIRIN 81MG ENTERIC TABLET PO SCH (09:00)
[2020-09-22] MEDS: FLUTICASONE PROP 0.05% NASAL SPRAY 16 GM (FLONASE) SCH (09:43)
[2020-09-22] MEDS: FERROUS SULFATE 325MG TAB PO SCH (09:43)
[2020-09-22] MEDS: FAMOTIDINE 20 MG TAB PO SCH ×2 (09:43→20:18)
[2020-09-22] MEDS: amLODIPine 5 MG TAB PO SCH (09:44)
--- NOTE | 2020-09-22 12:19 | IPNPDOC ---
Subjective Date Seen The patient was seen on 09/22/20. Subjective Chief Complaint/HPI Mrs. Kim is a 69-year-old female with the results as type II and osteopenia who comes from [facility] with bilateral humerus fractures. This morning, she still has bilateral arm pain, but unchanged from prior. She reports that orthopedic surgery recommended doing surgery to both arms. Planning for left side today and right side for tomorrow. Otherwise, denies chest pain or dyspnea. Objective Physical Examination General Exam: Positive: Alert, Cooperative Eye Exam: Positive: EOMI; Negative: Sclera icteric Neck Exam: Positive: Supple Chest Exam: Positive: Clear to auscultation; Negative: Rales, Rhonchi, Wheezing Heart Exam: Positive: Rate Normal, Regular Rhythm Abdomen Exam: Positive: Normal bowel sounds, Soft; Negative: Tenderness Extremity Exam: Positive: Other; Negative: Edema Neuro Exam: Positive: Normal Speech Psych Exam: Positive: Mental status NL, Mood NL Assessment /Plan Assessment Mrs. Kim is a 69-year-old female with the results as type II and osteopenia who comes from [facility] with bilateral humerus fractures. Orthopedic surgery, Dr. Lyons was consulted. Planning for ORIF to the left and right humerus. Plan/VTE VTE Prophylaxis Ordered?: Yes Plan 1. Bilateral humerus fractures Secondary to mechanical fall in the setting of osteopenia Continue vitamin D supplementation. Check vitamin D level Start oral calcium Orthopedic surgery following, recommendations appreciated Plan for right arm and eft arm to proceed with open reduction internal fixation Pain control with acetaminophen and tramadol. Morphine for severe pain 2. Osteopenia Demonstrated on imaging Continue vitamin D supplementation and add on calcium supplementation 3. CKD stage III Creatinine at baseline Avoid nephrotoxic agents Anticipate difficulty in eating and drinking due to bilateral arm fractures. Gentle IVF 4. Diabetes mellitus type 2 Hold metformin and Victoza Carbohydrate consistent diet Slight scale insulin 5. Hypertension Hold enalapril tomorrow and 2 days after surgery -Start amlodipine today 6. DVT prophylaxis Lovenox Disposition: Planning for OR today and tomorrow. Left arm today. Right arm tomorrow VS, I&O, 24H, Fishbone Vital Signs/I&O Vital Signs Date Time Temp Pulse Resp B/P (MAP) Pulse Ox O2 Delivery O2 Flow Rate FiO2 09/22/20 09:44 83 161/75 09/22/20 06:00 99.0 16 96 Room Air 09/20/20 21:30 2.0 I&O- Last 24 Hours up to 6 AM 09/22/20 06:00 Intake Total 3280 ml Output Total 1900 ml Balance 1380 ml Laboratory Data 24H LABS Laboratory Tests 2 09/21/20 16:18: Bedside Glucose (Misc Panel) 252H 09/21/20 21:20: Bedside Glucose (Misc Panel) 142H 09/22/20 05:48: Nucleated Red Blood Cells % (auto) 0.0, Anion Gap 6L, Glomerular Filtration Rate > 60.0, Calcium Level 8.0L 09/22/20 11:28: Bedside Glucose (Misc Panel) 195H CBC/BMP Laboratory Tests 09/22/20 05:48 PENELOPE ESTEBAN DO Sep 22, 2020 12:19
[2020-09-22 14:00] VITALS: BP 159/59
[2020-09-22] MEDS: ATORVASTATIN 20 MG TAB PO SCH (20:17)
[2020-09-22] MEDS: VITAMIN D 1,000 INTERNATIONAL UNITS TABLET PO SCH (20:17)
[2020-09-22] MEDS: CYANOCOBALAMIN 500 MCG TAB PO SCH (20:18)
[2020-09-22 22:15] VITALS: BP 161/72
[2020-09-23] VITALS (7 sets, daily range): BP systolic 155–170; BP diastolic 76–87
[2020-09-23] MEDS: ACETAMINOPHEN TAB 650MG DOSE (2X325MG) PO PRN ×2 (02:44→21:25)
[2020-09-23] MEDS: HumaLOG INSULIN (NovoLOG) PER UNIT SC SCH ×4 (07:30→22:00)
[2020-09-23] MEDS ORDERED: fentaNYL 100 MCG/2 ML INJECTION (J3010) As Ordered ONE (07:31)
[2020-09-23] MEDS ORDERED: MIDAZOLAM INJ 2MG/2ML VIAL (J2250 PER 1MG) As Ordered ONE (07:31)
[2020-09-23] MEDS ORDERED: ePHEDrine SULFATE 25 MG/5 ML(5MG/ML) SYRINGE As Ordered ONE (07:32)
[2020-09-23] MEDS ORDERED: ROCURONIUM BROMIDE 50 MG/5 ML VIAL As Ordered ONE ×3 (07:32→11:35)
[2020-09-23] MEDS ORDERED: PHENYLephrine 500MCG 5ML (100MCG/ML) SYRINGE As Ordered ONE (07:32)
[2020-09-23] MEDS ORDERED: SUGAMMADEX SODIUM 500 MG/5 ML VIAL (BRIDION) As Ordered ONE (07:32)
[2020-09-23] MEDS ORDERED: LIDOCAINE 2% 100MG/5ML SDV (FOR ANES.) As Ordered ONE (07:32)
[2020-09-23] MEDS ORDERED: dexameTHASONE 4 MG/ML 1ML VIAL (J1100 PER 1MG) As Ordered ONE (07:32)
[2020-09-23] MEDS ORDERED: ONDANSETRON 4MG/2ML VIAL As Ordered ONE (07:32)
[2020-09-23] MEDS ORDERED: propofoL 200 MG/20 ML VIAL As Ordered ONE (07:36)
[2020-09-23 07:39] LABS: HEMATOCRIT 29.1 % (36.0-47.0); HEMOGLOBIN 9.8 g/dl (12.0-15.5); MEAN CORPUSCULAR HEMOGLOBIN 30.7 pg (27.0-33.0); MEAN CORPUSCULAR HGB CONC 33.7 g/dl (32.0-36.5); MEAN CORPUSCULAR VOLUME 91.2 fl (80.0-96.0); PLATELET COUNT, AUTOMATED 159 10^3/uL (150-450); RED BLOOD COUNT 3.19 10^6/uL (4.00-5.40); WHITE BLOOD COUNT 7.2 10^3/uL (4.0-10.0)
[2020-09-23 08:17] LABS: BLOOD UREA NITROGEN 10 MG/DL (7-18); CALCIUM LEVEL 7.6 MG/DL (8.8-10.2); CARBON DIOXIDE LEVEL 27 MEQ/L (21-32); CHLORIDE LEVEL 107 MEQ/L (98-107); CREATININE FOR GFR 0.86 MG/DL (0.55-1.30); GLOMERULAR FILTRATION RATE > 60.0 (>45); GLUCOSE, FASTING 186 MG/DL (70-100); POTASSIUM SERUM 3.8 MEQ/L (3.5-5.1); SODIUM LEVEL 139 MEQ/L (136-145)
[2020-09-23] MEDS ORDERED: SCOPOLAMINE 1MG TRANSDERMAL PATCH TOP ONE (08:20)
[2020-09-23] MEDS: FLUTICASONE PROP 0.05% NASAL SPRAY 16 GM (FLONASE) SCH (09:00)
[2020-09-23] MEDS: FERROUS SULFATE 325MG TAB PO SCH (09:00)
[2020-09-23] MEDS: FAMOTIDINE 20 MG TAB PO SCH ×2 (09:00→21:25)
[2020-09-23] MEDS ORDERED: ACETAMINOPHEN 1000MG 100ML IV BTL (OFIRMEV) (J0131 PER 10MG) As Ordered ONE (09:44)
[2020-09-23] MEDS ORDERED: VANCOMYCIN 1000MG/20ML VIAL As Ordered ONE ×2 (09:48→13:19)
[2020-09-23] MEDS ORDERED: HYDROmorphone HCL 2 MG/ML 1ML VIAL (J1170) As Ordered ONE (10:44)
[2020-09-23] MEDS ORDERED: ceFAZolin 2 GM/D5W 50 ML IV BAG (J0690 PER 500MG) IV ONE ×2 (10:50→12:56)
[2020-09-23] MEDS ORDERED: TRANEXAMIC ACID 100 MG/ML 10ML VIAL IV ONE (10:51)
[2020-09-23] MEDS ORDERED: ceFAZolin 2 GM/D5W 50 ML IV BAG (J0690 PER 500MG) As Ordered ONE (12:26)
[2020-09-23] MEDS ORDERED: TRANEXAMIC ACID 100 MG/ML 10ML VIAL As Ordered ONE (13:46)
[2020-09-23] MEDS ORDERED: METOCLOPRAMIDE INJ 10MG/2ML VIAL (J2765 PER 1) As Ordered ONE (15:37)
[2020-09-23] MEDS ORDERED: oxyCODONE 5MG TAB PO PRN (15:45)
[2020-09-23] MEDS ORDERED: METOCLOPRAMIDE INJ 10MG/2ML VIAL (J2765 PER 1) IV PRN (15:45)
[2020-09-23] MEDS ORDERED: ONDANSETRON 4MG/2ML VIAL IV PRN (15:45)
[2020-09-23] MEDS ORDERED: LR 1,000 ML IV SCH (15:45)
[2020-09-23] MEDS ORDERED: HYDROMORPHONE HCL 0.5 MG/ 0.5 ML SYRINGE (J1170 PER 1) IV PRN (15:45)
[2020-09-23] MEDS: LABETALOL 100MG/20ML VIAL IV PRN ×4 (15:50→16:10)
[2020-09-23] MEDS ORDERED: LABETALOL 100MG/20ML VIAL As Ordered ONE (15:53)
[2020-09-23] MEDS: fentaNYL 100 MCG/2 ML INJECTION (J3010) IV PRN ×2 (16:17→16:22)
[2020-09-23] MEDS: ASPIRIN 81MG ENTERIC TABLET PO SCH ×2 (17:16→17:18)
[2020-09-23] MEDS: amLODIPine 5 MG TAB PO SCH (17:17)
--- NOTE | 2020-09-23 17:18 | REP ---
INDICATION: ORIF COMPARISON: Radiographs 09/21/2020. TECHNIQUE: Multiple C-arm views left humerus performed. FINDINGS: Metallic plate and multiple metallic screws placed for fixation of a fracture of the proximal shaft of the left humerus. On the final images the fracture is well aligned. IMPRESSION: 156 seconds of fluoroscopy time utilized. <Electronically signed by Denilson Rios > 09/23/20 [id number]
[2020-09-23] MEDS: NS 1,000 ML IV SCH (17:30)
--- NOTE | 2020-09-23 19:46 | IPNPDOC ---
Subjective Date Seen The patient was seen on 09/23/20. Subjective Chief Complaint/HPI Mrs. Kim is a 69-year-old female with the results as type II and osteopenia who comes from [facility] with bilateral humerus fractures. Unable to do left arm yesterday due to missing component still at [place]. Patient went today for left ORIF. Orthopedics also recommending to do right should replacement, but this may have to be done in [place]. Patient was seen after the left ORIF. Denies chest pain or dyspnea. Still sleepy from anesthesia. Objective Physical Examination General Exam: Positive: Alert, Cooperative Eye Exam: Positive: EOMI; Negative: Sclera icteric Neck Exam: Positive: Supple Chest Exam: Positive: Clear to auscultation; Negative: Rales, Rhonchi, Wheezing Heart Exam: Positive: Rate Normal, Regular Rhythm Abdomen Exam: Positive: Normal bowel sounds, Soft; Negative: Tenderness Extremity Exam: Negative: Edema Neuro Exam: Positive: Normal Speech Psych Exam: Positive: Mental status NL, Mood NL Assessment /Plan Assessment Mrs. Kim is a 69-year-old female with the results as type II and osteopenia who comes from [facility] with bilateral humerus fractures. Orthopedic surgery, Dr. Lyons was consulted. Planning for ORIF to the left humerus. Will need right shoulder replacement as well. Plan/VTE VTE Prophylaxis Ordered?: Yes Plan 1. Bilateral humerus fractures Secondary to mechanical fall in the setting of osteopenia Continue vitamin D supplementation. Check vitamin D level Start oral calcium Orthopedic surgery following, recommendations appreciated Left arm s/p ORIF on 09/23/2020 -Plan for right should replacement in the future Pain control with acetaminophen and tramadol. Morphine for severe pain 2. Osteopenia Demonstrated on imaging Continue vitamin D supplementation and add on calcium supplementation 3. CKD stage III Creatinine at baseline Avoid nephrotoxic agents Anticipate difficulty in eating and drinking due to bilateral arm fractures. Gentle IVF 4. Diabetes mellitus type 2 Hold metformin and Victoza Carbohydrate consistent diet Slight scale insulin 5. Hypertension Hold enalapril tomorrow and 2 days after surgery -Start amlodipine today 6. DVT prophylaxis Lovenox Disposition: Pending orthopedic surgery recommendations VS, I&O, 24H, Fishbone Vital Signs/I&O Vital Signs Date Time Temp Pulse Resp B/P (MAP) Pulse Ox O2 Delivery O2 Flow Rate FiO2 09/23/20 18:30 98.8 86 20 160/87 (111) 92 Room Air 09/23/20 18:00 2.0 I&O- Last 24 Hours up to 6 AM 09/23/20 06:00 Intake Total 1440 ml Output Total 2450 ml Balance -1010 ml Laboratory Data 24H LABS Laboratory Tests 2 09/22/20 20:15: Bedside Glucose (Misc Panel) 166H 09/23/20 07:08: Nucleated Red Blood Cells % (auto) 0.0, Anion Gap 5L, Glomerular Filtration Rate > 60.0, Calcium Level 7.6L 09/23/20 16:59: Bedside Glucose (Misc Panel) 212H CBC/BMP Laboratory Tests 09/23/20 07:08 PENELOPE ESTEBAN DO Sep 23, 2020 19:46
[2020-09-23] MEDS: ATORVASTATIN 20 MG TAB PO SCH (21:24)
[2020-09-23] MEDS: CYANOCOBALAMIN 500 MCG TAB PO SCH (21:24)
[2020-09-23] MEDS: VITAMIN D 1,000 INTERNATIONAL UNITS TABLET PO SCH (21:24)
[2020-09-24 02:00] VITALS: BP 160/78
[2020-09-24] MEDS: ACETAMINOPHEN TAB 650MG DOSE (2X325MG) PO PRN ×2 (04:55→11:59)
[2020-09-24 06:00] VITALS: BP 146/68
[2020-09-24 08:10] LABS: HEMATOCRIT 26.7 % (36.0-47.0); MEAN CORPUSCULAR HGB CONC 33.7 g/dl (32.0-36.5); PLATELET COUNT, AUTOMATED 221 10^3/uL (150-450); WHITE BLOOD COUNT 11.2 10^3/uL (4.0-10.0)
[2020-09-24] MEDS: HumaLOG INSULIN (NovoLOG) PER UNIT SC SCH ×4 (08:21→21:00)
[2020-09-24] MEDS: FLUTICASONE PROP 0.05% NASAL SPRAY 16 GM (FLONASE) SCH (08:21)
[2020-09-24] MEDS: FERROUS SULFATE 325MG TAB PO SCH (08:22)
[2020-09-24] MEDS: amLODIPine 5 MG TAB PO SCH (08:22)
[2020-09-24] MEDS: FAMOTIDINE 20 MG TAB PO SCH ×2 (08:22→21:26)
[2020-09-24] MEDS: ASPIRIN 81MG ENTERIC TABLET PO SCH (08:23)
[2020-09-24 08:30] LABS: BLOOD UREA NITROGEN 14 MG/DL (7-18); CALCIUM LEVEL 7.8 MG/DL (8.8-10.2); CARBON DIOXIDE LEVEL 26 MEQ/L (21-32); CHLORIDE LEVEL 105 MEQ/L (98-107); CREATININE FOR GFR 0.95 MG/DL (0.55-1.30); GLOMERULAR FILTRATION RATE > 60.0 (>45); GLUCOSE, FASTING 248 MG/DL (70-100); SODIUM LEVEL 138 MEQ/L (136-145)
--- NOTE | 2020-09-24 09:04 | RO ---
OPERATIVE NOTE DATE OF OPERATION: 09/20/2020 TIME: 10:30 a.m. PREOPERATIVE DIAGNOSIS: Left proximal humerus fracture involving the metaphysis and diaphysis of the left humeral shaft. POSTOPERATIVE DIAGNOSIS: Left proximal humerus fracture involving the metaphysis and diaphysis of the left humeral shaft. NAME OF OPERATION: Left proximal humerus open reduction and internal fixation. SURGEON: Frederic Glass MD LIVESTOCK FEEDER: Shay Aguilar MD SUPERVISING ATTENDING: Frederic Glass MD FINDINGS: The patient had a comminuted fracture of the left proximal humerus involving the metadiaphysis and diaphysis of the proximal 1/3 of the humeral shaft. INDICATIONS: This was a 69-year-old female who sustained bilateral proximal humeral shaft fractures. The patient's right proximal humerus fracture was a four part fracture of the anatomic neck and the patient's left proximal humerus fracture involved the proximal 1/3 of the shaft including the metadiaphysis and diaphysis of the proximal humerus. 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 The patient does have a past medical history to include diabetes among other comorbidities as described in the consultation note. Given the unacceptable alignment of the patient's left proximal humerus and difficulty achieving closed reduction, she was indicated for the aforementioned left proximal humerus open reduction and internal fixation. Regarding her right humerus, it is my professional recommendation the patient receives a reverse total shoulder arthroplasty given the comminution as well as the anastomotic neck fracture location and likelihood for AVN or avascular necrosis despite open reduction and internal fixation. ANESTHESIA: GETA. TOURNIQUET TIME: None used. ESTIMATED BLOOD LOSS: 300 mL. IV ANTIBIOTICS: 2 grams of Ancef, dose twice four hours apart, 2 gm of TXA. IV FLUIDS: Please see anesthesia report. IMPLANTS: Wanda. CULTURES: None. SPECIMENS: None. DESCRIPTION OF PROCEDURE: The patient was met in the preoperative holding area where the patient's operative extremity was signed, the patient's consent was confirmed to be correct, and the patient's identity was confirmed to be correct. The patient was then transferred to the operating theater where she was placed in a supine position in a beach chair position and a safety strap secured the patient to the bed. All bony prominences were well padded and bilateral lower extremities had SCDs placed. A timeout was called which confirmed the correct patient, correct operative extremity and correct consent. All staff was in agreement. The patient was then draped in the usual sterile fashion with an arm attachment in order to control left shoulder range of motion and to include distraction. We began the procedure by obtaining a Grashey and Velpeau view of the shoulder. This was essentially an AP of the glenohumeral joint as well as an axial of the glenohumeral joint. This allows us to not only identify the fracture location to plan our surgical incision but also would be our working views for implant placement. We then marked our skin incision proximally from the coracoid distally to the lateral aspect of the biceps muscle belly at approximately the mid-shaft level. We marked the surgical incision, incised sharply and then introduced vancomycin powder in order the decrease our burden of P. acnes bacteria contaminant. We then used a combination of blunt dissection as well as electrocautery in order to make our way to the cephalic vein. T The cephalic vein was isolated and protected throughout the remainder of the case and was taken medially without injury throughout the remainder of the case. We then utilized the deltopectoral interval in order to make our way to the proximal humerus. We identified the bicipital groove as well as the long head of the biceps which was protected throughout the remainder of the case. At this point in time, I placed a retractor within the subacromial space in order to better reflect the deltoid muscle. A second retractor was placed deep to the deltoid muscle at the proximal humerus. This gave us great exposure of the fracture comminution. Then I extended our interval through a brachialis split interval in order to achieve expose of the fracture. At this point in time, we were very satisfied with our fracture exposure. We were careful to maintain periosteal attachments to the posterior, lateral and medial aspects of the fracture. Using traction through the arm womack, we were able to then provisionally reduce our comminuted fracture. I introduced a threaded guide pin through the humeral neck into the subchondral bone of the humerus in order to control rotation. I then used a lobster clamp to control the proximal spiral fragment of the fracture. I placed a second lobster clamp to control our more distal spiral fracture at the proximal 1/3 level of the fracture site. In all, we had three lobster clamps lagging our spiral fracture and three large fracture fragments. Using a combination of threaded guide pins as well as two lag screws by technique, we were able to provide provisional fixation and near anatomic reduction of our humerus fracture. At this point in time, we then used a 202 mm plate and secured this into position with one cortical screw just distal to the most distal extent of the fracture. We then placed a guide pin in the central hole of the locking plate placed and it was centered on the humeral neck and head, placed a second cortical screw in the distal shaft in order to secure the plate to the bone. We placed five locking screws through the humeral head. I then placed two additional cortical screws in the most distal two holes in order to provide both rigid plate with neutralization effect to a more inferior spiral fracture. We were able to achieve absolute stability to the inferior fracture fragment after the rigid plate to the mid-proximal spiral fracture. After the completion of our fixation to include five proximal locking screws within the humeral head which were confirmed to be within the humeral head and centered on the Valpeau and Grashey views and four cortical screws distally, I placed one additional locking screw through the most proximal spiral fragment in order to stiffen the construct without stiffening it too much. At the completion of the case, we removed all instrumention and completed a count of wires which were used for provisional reduction, Schanz pins and clamps. We obtained final Grashey and Velpeau views which on essence were AP and lateral views of the patient's left humerus. We were satisfied with both the reduction as well as the implant placement. We restored the proximal humerus neck and shaft relationship as well as the length of the humerus fracture, coronal-sagittal alignment and rotational alignment. We copiously irrigated the surgical site using three liters of normal saline and introduced vancomycin powder within the surgical site. I was able to reapproximate the deltopectoral fascia using 0 Vicryl suture, reapproximated 20% of the deltoid tendon that was taken down to place the plate and used a #2 FiberWire suture in order to reapproximate the deltoid ligament to the plate in its anatomic insertion. We then closed the skin using 2-0 Vicryl and closed the epidermis using a running 4-0 Monocryl suture. We placed Dermabond over the surgical site. The patient's left upper extremity was then placed in a sling. The patient was extubated without complication and transported to the postanesthesia care unit. The patient's care will be transferred to the hospitalist service where she will be discharged shortly. I recommend the patient visits her shoulder arthroplasty surgeon of choice for a right reverse total shoulder arthroplasty. The patient will follow the left humeral shaft open reduction and internal fixation rehabilitative protocol for her rehabilitative plan. The patient will be her postoperative pain medication by the internal medicine service. The patient will follow up in my clinic on the or 12 of October for a postoperative wound check and initiation of physical therapy. The patient will be nonweightbearing to the left upper extremity. However, she will be allowed to range her left shoulder as tolerated to include her elbow and wrist. The patient is not allowed to lift any weight. The patient was educated of the aforementioned surgery in the PACU and will be rounded on by both the hospitalist and orthopedic service. KERRI
[2020-09-24] MEDS: traMADol 50 MG TAB PO PRN ×2 (09:32→16:08)
[2020-09-24 09:55] VITALS: BP 146/70
[2020-09-24] MEDS: ENALAPRIL MALEATE 10 MG TAB PO SCH ×2 (10:13→21:25)
[2020-09-24 14:00] VITALS: BP 162/64
--- NOTE | 2020-09-24 15:40 | IPNPDOC ---
Subjective Date Seen The patient was seen on 09/24/20. Subjective Chief Complaint/HPI Mrs. Kim is a 69-year-old female with the results as type II and osteopenia who comes from [facility] with bilateral humerus fractures. ORIF of left arm performed on 09/23/2020. This morning, denies chest pain or dyspnea. Sore in the arms. Discussed case with Dr. Glass and with OT. Gave options to patient, and patient decided home with 24/7 care from family. She will follow up with orthopedic surgery in [place] for evaluation for possible reverse total shoulder arthroplasty. Objective Physical Examination General Exam: Positive: Alert, Cooperative Eye Exam: Positive: EOMI; Negative: Sclera icteric Neck Exam: Positive: Supple Chest Exam: Positive: Clear to auscultation; Negative: Rales, Rhonchi, Wheezing Heart Exam: Positive: Rate Normal, Regular Rhythm Abdomen Exam: Positive: Normal bowel sounds, Soft; Negative: Tenderness Extremity Exam: Negative: Edema Neuro Exam: Positive: Normal Speech Psych Exam: Positive: Mental status NL, Mood NL Assessment /Plan Assessment Mrs. Kim is a 69-year-old female with the results as type II and osteopenia who comes from [facility] with bilateral humerus fractures. Orthopedic surgery, Dr. Lyons was consulted. Dr. Glass performed left humerus ORIF on 09/23/2020 Patient will need to follow up with [place] for evaluation of right shoulder and potential reverse total shoulder arthroplasty PT and OT evaluated patient. Patient is able to ambulate, but will need 24/7 from OT standpoint as left arm is still recovering and right shoulder will possibly need surgery. Plan/VTE VTE Prophylaxis Ordered?: Yes Plan 1. Bilateral humerus fractures Secondary to mechanical fall in the setting of osteopenia Continue vitamin D supplementation. Check vitamin D level Start oral calcium Orthopedic surgery following, recommendations appreciated Left arm s/p ORIF on 09/23/2020 -Plan for right should replacement in the future Pain control with acetaminophen and tramadol. Morphine for severe pain 2. Osteopenia Demonstrated on imaging Continue vitamin D supplementation and add on calcium supplementation 3. CKD stage III Creatinine at baseline Avoid nephrotoxic agents Anticipate difficulty in eating and drinking due to bilateral arm fractures. Gentle IVF 4. Diabetes mellitus type 2 Hold metformin and Victoza Carbohydrate consistent diet Slight scale insulin 5. Hypertension Hold enalapril tomorrow and 2 days after surgery -Start amlodipine today 6. DVT prophylaxis Lovenox Disposition: Anticipate home tomorrow. Patient will need to call her orthopedic surgery to evaluate her right should for possible reverse total shoulder arthroplasty VS, I&O, 24H, Lex Vital Signs/I&O Vital Signs Date Time Temp Pulse Resp B/P (MAP) Pulse Ox O2 Delivery O2 Flow Rate FiO2 09/24/20 14:00 98.2 86 18 162/64 (96) 95 Room Air 09/23/20 18:00 2.0 I&O- Last 24 Hours up to 6 AM 09/24/20 06:00 Intake Total 3600 ml Output Total 2450 ml Balance 1150 ml Laboratory Data 24H LABS Laboratory Tests 2 09/23/20 16:59: Bedside Glucose (Misc Panel) 212H 09/23/20 22:41: Bedside Glucose (Misc Panel) 250H 09/24/20 07:28: Bedside Glucose (Misc Panel) 237H 09/24/20 07:37: Nucleated Red Blood Cells % (auto) 0.0, Anion Gap 7L, Glomerular Filtration Rate > 60.0, Calcium Level 7.8L 09/24/20 11:32: Bedside Glucose (Misc Panel) 237H CBC/BMP Laboratory Tests 09/24/20 07:37 PENELOPE ESTEBAN DO Sep 24, 2020 15:40
[2020-09-24] MEDS: CYANOCOBALAMIN 500 MCG TAB PO SCH (21:25)
[2020-09-24] MEDS: VITAMIN D 1,000 INTERNATIONAL UNITS TABLET PO SCH (21:25)
[2020-09-24] MEDS: ATORVASTATIN 20 MG TAB PO SCH (21:26)
[2020-09-24 22:00] VITALS: BP 167/76
[2020-09-25 06:00] VITALS: BP 164/75
[2020-09-25] MEDS: HumaLOG INSULIN (NovoLOG) PER UNIT SC SCH (07:30)
[2020-09-25 07:32] LABS: HEMATOCRIT 24.7 % (36.0-47.0); MEAN CORPUSCULAR HEMOGLOBIN 29.7 pg (27.0-33.0); MEAN CORPUSCULAR HGB CONC 32.4 g/dl (32.0-36.5); MEAN CORPUSCULAR VOLUME 91.8 fl (80.0-96.0); PLATELET COUNT, AUTOMATED 211 10^3/uL (150-450); RED BLOOD COUNT 2.69 10^6/uL (4.00-5.40); WHITE BLOOD COUNT 8.5 10^3/uL (4.0-10.0)
[2020-09-25 07:54] LABS: BLOOD UREA NITROGEN 19 MG/DL (7-18); CALCIUM LEVEL 8.2 MG/DL (8.8-10.2); CARBON DIOXIDE LEVEL 28 MEQ/L (21-32); CHLORIDE LEVEL 105 MEQ/L (98-107); CREATININE FOR GFR 0.89 MG/DL (0.55-1.30); GLOMERULAR FILTRATION RATE > 60.0 (>45); GLUCOSE, FASTING 200 MG/DL (70-100); POTASSIUM SERUM 3.8 MEQ/L (3.5-5.1); SODIUM LEVEL 140 MEQ/L (136-145)
[2020-09-25 08:27] VITALS: BP 157/78
[2020-09-25] MEDS: ASPIRIN 81MG ENTERIC TABLET PO SCH (08:48)
[2020-09-25] MEDS: FAMOTIDINE 20 MG TAB PO SCH (08:48)
[2020-09-25] MEDS: ENALAPRIL MALEATE 10 MG TAB PO SCH (08:49)
[2020-09-25] MEDS: FERROUS SULFATE 325MG TAB PO SCH (08:49)
[2020-09-25 08:50] VITALS: BP 157/78
[2020-09-25] MEDS: amLODIPine 5 MG TAB PO SCH (08:50)
[2020-09-25] MEDS: FLUTICASONE PROP 0.05% NASAL SPRAY 16 GM (FLONASE) SCH (08:51)
[2020-09-25] MEDS ORDERED: TRAM50TA2 PO (09:46)
--- NOTE | 2020-09-25 12:31 | DS.PDOC ---
Discharge Summary General Date of Admission Sep 20, 2020 at 17:32 Date of Discharge 09/25/[address] DOCKERY'S DISCHARGE NOTE DICTATED JOB #[id number] PLS CALL HYPERTYPE AT [id number] FOR STAT REPORTING MANAGER Vital Signs/I&Os Vital Signs Date Time Temp Pulse Resp B/P (MAP) Pulse Ox O2 Delivery O2 Flow Rate FiO2 09/25/20 08:50 101 157/78 09/25/20 08:27 99.1 16 Room Air 09/25/20 06:00 95 09/23/20 18:00 2.0 I&O- Last 24 Hours up to 6 AM 09/25/20 05:59 Intake Total 1590 ml Output Total 750 ml Balance 840 ml Laboratory Data Labs 24H Laboratory Tests 2 09/24/20 16:17: Bedside Glucose (Misc Panel) 208H 09/24/20 20:24: Bedside Glucose (Misc Panel) 213H 09/25/20 06:55: Nucleated Red Blood Cells % (auto) 0.0, Anion Gap 7L, Glomerular Filtration Rate > 60.0, Calcium Level 8.2L CBC/BMP Laboratory Tests 09/25/20 06:55 FSBS Laboratory Tests Test 09/24/20 16:17 09/24/20 20:24 Range/Units Bedside Glucose (Misc Panel) 208 213 80-115 MG/DL Discharge Medications Scheduled Aspirin (Ecotrin) 81 Mg Tablet.dr, 81 MG PO DAILY, (Reported) Atorvastatin Calcium (Atorvastatin Calcium) 40 Mg Tablet, 40 MG PO QPM, (Reported) Cholecalciferol (Vitamin D3) (Vitamin D3) 1,000 Unit Tablet, 1,000 UNITS PO QPM, (Reported) Cyanocobalamin (Vitamin B-12) (Vitamin B-12) 1,000 Mcg Capsule, 1,000 MCG PO QPM, (Reported) Enalapril Maleate (Enalapril Maleate) 20 Mg Tablet, 20 MG PO BID, (Reported) Famotidine (Famotidine) 20 Mg Tablet, 20 MG PO BID, (Reported) Ferrous Sulfate (Ferrous Sulfate) 325 Mg Tablet.dr, 325 MG PO DAILY, (Reported) Fluticasone Propionate (Fluticasone Propionate) 16 Gm [place].susp, 1 SPRAY NA DAILY, (Reported) Liraglutide (Victoza 3-John) 0.6 Mg/0.1 Ml Pen.injctr, 1.8 MG SC DAILY, (Reported) Magnesium Oxide (Magnesium) 250 Mg Tablet, 250 MG PO QPM, (Reported) Metformin HCl (Metformin HCl ER) 500 Mg Tab.er.24h, 500 MG PO BID, (Reported) Scheduled PRN Tramadol HCl (Tramadol HCl) 50 Mg Tablet, 50 MG PO Q6HP PRN for MODERATE PAIN (PS 5-7) Allergies Coded Allergies: No Known Allergies (Unverified , 03/23/19) LASHON DOCKERY MD Sep 25, 2020 12:31
--- NOTE | 2020-09-25 13:55 | DSES ---
DISCHARGE SUMMARY DATE OF ADMISSION: 09/20/2020 DATE OF DISCHARGE: 09/25/2020 CONSULTANTS: 1. Freddy Lyons MD, Orthopedic Surgeon. 2. Frederic Glass MD, Orthopedic Surgeon. DISCHARGE DIAGNOSES: 1. Bilateral humeral fractures secondary to mechanical fall in the setting of osteopenia. 2. Chronic osteopenia. 3. Mechanical fall at home. 4. Chronic kidney disease stage III. 5. Type 2 diabetes. 6. Hypertension. DISCHARGE INSTRUCTIONS: Dr. Glass followup due to left humeral open reduction and internal fixation (ORIF) on 09/23/2020. Right shoulder evaluation to be seen by [place] orthopedic surgeon for potential reversal of total shoulder arthroplasty. Primary care appointment within five days of hospital discharge. DISCHARGE MEDICATIONS: - Tramadol 50 mg every 6 hours as needed for pain - aspirin 81 mg daily - atorvastatin 40 mg every evening - vitamin D 1000 units every evening - vitamin B12 1000 mcg every evening - enalapril 20 mg twice a day - famotidine 20 mg twice a day - ferrous sulfate 325 mg daily - fluticasone one spray each nostril daily - Victoza 1.8 mg daily - magnesium oxide 250 mg every evening - metformin 500 mg twice a day HOSPITAL COURSE: This is a 69-year-old female with history of chronic osteopenia transferred from [facility] emergency room after falling with outstretched arms [facility], with bilateral humeral fractures, evaluated by Dr. Lyons in the emergency room (ER). Patient preceded for a left arm open reduction and internal fixation (ORIF) and the right arm to be managed conservatively with reversal of arthroplasty by her orthopedic surgeon in [place]. Patient was medically optimized and had not been on any anticoagulation. She was made nothing by mouth (NPO), placed on intravenous fluids, did not develop any fluid overload or worsening renal dysfunction, continued on enalapril for her hypertension. Patient underwent ORIF of left proximal humeral fracture involving the metaphysis and diaphysis of the left humeral shaft. On 09/23/2020, was given perioperative antibiotics with IV, Ancef dosed two hours apart. Patient had no other medical issues. Right arm was kept in a sling. Patient was instructed to follow up with her orthopedic surgeon in [place] to evaluate her right shoulder for possible reverse of right shoulder arthroplasty. Family can provide 24 hour a day, 7 days a week supervision. She was discharged in stable condition. PHYSICAL EXAMINATION ON DISCHARGE: Temperature 99.1, pulse 101, respiratory rate 16, blood pressure 127/78, 95% on room air. GENERAL: Awake, alert, oriented times three, answering questions appropriately, right arm in a sling, postoperative left open reduction and internal fixation (ORIF). LUNGS: Clear to auscultation. No wheezing or rales. HEART: S1, S2. Sinus rhythm. ABDOMEN: Obese. Soft, nontender, nondistended. EXTREMITIES: No pitting edema. LABORATORY DATA: White count 8.5, hemoglobin 8, hematocrit 24, platelet count 211. Sodium 140, potassium 3.5, chloride 105, bicarbonate 28, BUN 19, creatinine 0.8, glucose 200. IMAGING STUDIES: CT 09/21/2020: Comminuted impacted fracture at the head and surgical neck of the left humerus, metaphysis superiorly impacted into the base of the humeral head along the under surface of the glenoid extending into the lesser and greater tuberosity of the left humerus. Humeral head is mildly subluxed. CT right shoulder, proximal humerus fracture. TIME SPENT ON DISCHARGE: 30 minutes MTDD
== END 2020-09-25 12:15 | disposition home health service (06) | DRG 315 ==
LOC: M ED 16:20 → M ED INP 17:32 → ENRESERV 19:21 → M MS5PR 21:45
PROVIDERS: ADMIT Internal Medicine; ATTEND General Practice
PROC: 0PSG04Z Reposition Left Humeral Shaft with Internal Fixation Device, Open Approach (ICD-10-PCS; principal; 2020-09-20)
DX: S42.212A Unspecified displaced fracture of surgical neck of left humerus, initial encounter for closed fracture (principal); S42.301A Unspecified fracture of shaft of humerus, right arm, initial encounter for closed fracture; M85.80 Other specified disorders of bone density and structure, unspecified site; E11.9 Type 2 diabetes mellitus without complications; I12.9 Hypertensive chronic kidney disease with stage 1 through stage 4 chronic kidney disease, or unspecified chronic kidney disease; N18.30 Chronic kidney disease, stage 3 unspecified; Z79.82 Long term (current) use of aspirin; Z79.899 Other long term (current) drug therapy; W18.30XA Fall on same level, unspecified, initial encounter; Y92.009 Unspecified place in unspecified non-institutional (private) residence as the place of occurrence of the external cause; E78.5 Hyperlipidemia, unspecified; K21.9 Gastro-esophageal reflux disease without esophagitis; E53.8 Deficiency of other specified B group vitamins; Z96.651 Presence of right artificial knee joint

== ENCOUNTER → 2020-11-06 | Outpatient (CLI) | payer OTHER, MEDICARE ==
[~2020-11-06] MED LIST changes: +D31000TA2 PO; +FAMO1TAB11 PO; +TRAM50TA2 PO
--- NOTE | 2020-11-06 12:40 | REP ---
INDICATION: F/U FX. COMPARISON: 10/11/2020 TECHNIQUE: AP and lateral views of the left humerus. FINDINGS: Satisfactory open reduction and fixation for humeral shaft fracture again noted. Surrounding callus formation and heterotopic ossification again identified. IMPRESSION: No significant change from prior examination. <Electronically signed by Kofi Oviedo > 11/06/20 2148
--- NOTE | 2020-11-06 12:48 | REP ---
INDICATION: F/U FX. COMPARISON: 10/11/2020 TECHNIQUE: Internal rotation, external rotation, axillary and Y-view of the left shoulder FINDINGS: Stable examination with evidence for prior open reduction and fixation for proximal humeral shaft fracture. Surrounding callus formation and heterotopic calcification noted. Underlying osteopenia. Subacromial space is normal. Acromioclavicular and glenohumeral joints are normal. IMPRESSION: Stable examination with known fixation for distal humeral shaft fracture. <Electronically signed by Kofi Oviedo > 11/06/20 1243
== END ==
LOC: M SOG 09:41
PROVIDERS: ATTEND Orthopaedic Surgery
DX: S42.342D Displaced spiral fracture of shaft of humerus, left arm, subsequent encounter for fracture with routine healing (principal); X58.XXXD Exposure to other specified factors, subsequent encounter; Y92.9 Unspecified place or not applicable

== ENCOUNTER → 2020-11-17 | Outpatient (CLI) | payer OTHER ==
--- NOTE | 2020-11-18 11:55 | REPVR ---
PROCEDURE INFORMATION: Exam: CT Left Upper Extremity Without Contrast, Upper Arm Exam date and time: 11/17/2020 11:30 AM Age: 69 years old Clinical indication: Condition or disease; Other: FX; Additional info: Unsp fracture of upper end of lt humerus TECHNIQUE: Imaging protocol: CT of the Left upper extremity without contrast was performed. Exam focused on the upper arm. Radiation optimization: All CT scans at this facility use at least one of these dose optimization techniques: automated exposure control; mA and/or kV adjustment per patient size (includes targeted exams where dose is matched to clinical indication); or iterative reconstruction. COMPARISON: 1. CR Humerus BILATERAL 09/21/2020 7:46 PM 2. CR SHOULDER COMPLETE 11/06/2020 9:48:12 AM (report not provided) FINDINGS: Bones/joints: As on the more recent radiographs, there are operative changes of hardware fixation of the prior humeral fracture. A metallic plate is affixed to the anterolateral cortex of the humerus, from the head to the mid to distal shaft with multiple screws, bridging the previous umol fracture, which is again comminuted and mildly displaced, and in near anatomic alignment. There is considerable surrounding partially bridging callus formation and heterotopic calcification. Mild osteophyte formation is present about the acromioclavicular and glenohumeral joints, which are normally aligned. The elbow joint is also normally aligned and with very mild degenerative changes. There has been interval contralateral reverse shoulder arthroplasty since 09/21/20. Soft tissues: There appears to be somewhat ill-defined fluid in the soft tissues anteriorly over the operative level, measuring up to 3.4 x 2.2 cm in the axial plane and extending up to 15 cm craniocaudad from the level of the head to the mid shaft of the ulna. This could represent a postoperative hematoma/seroma, with infectious potential not excluded. There is no abnormal soft tissue gas. IMPRESSION: 1. Posttraumatic, postoperative left humerus as described. 2. Somewhat ill-defined fluid in the soft tissues anteriorly over the operative level, could represent postoperative hematoma/seroma, with infectious potential not excluded. 3. Degenerative changes as described. Electronically signed by: Paul Cartagena On 11/18/2020 11:54:49 AM
== END ==
LOC: M RAD 11:16
PROVIDERS: ATTEND Orthopaedic Surgery
DX: S42.202A Unspecified fracture of upper end of left humerus, initial encounter for closed fracture (principal); X58.XXXA Exposure to other specified factors, initial encounter; Y92.9 Unspecified place or not applicable

== ENCOUNTER → 2020-12-06 | Outpatient (CLI) | payer OTHER | LOC: M SOG 11:24 | PROVIDERS: ATTEND Orthopaedic Surgery | DX: S42.342D Displaced spiral fracture of shaft of humerus, left arm, subsequent encounter for fracture with routine healing (principal); Z53.9 Procedure and treatment not carried out, unspecified reason ==

== ENCOUNTER → 2020-12-31 | Outpatient (CLI) | payer OTHER ==
[~2020-12-31] MED LIST changes: +OZEM2INJ SC
== END ==
LOC: M LABSMTC 08:57
PROVIDERS: ATTEND Anesthesiology
DX: Z01.812 Encounter for preprocedural laboratory examination (principal)

== ENCOUNTER → 2021-01-01 | Outpatient (CLI) | payer OTHER ==
--- NOTE | 2021-01-01 17:02 | REP ---
INDICATION: PREOP EXAM. COMPARISON: No comparison chest x-ray. TECHNIQUE: Two views.. FINDINGS: The lungs are hyperinflated but free of infiltrate. Pleural angles are sharp. Heart size is normal. There is a large hiatal hernia containing air in the retrocardiac region. Pulmonary vasculature is not increased. There is a prosthetic right shoulder and orthopedic hardware is seen in the left proximal humerus. No acute bony abnormality is appreciated. IMPRESSION: Large hiatal hernia. Somewhat hyperinflated lungs. Otherwise no acute disease. <Electronically signed by Beck Pedraza > 01/01/21 0824
[2021-01-01 17:23] LABS: INR 0.95; PROTHROMBIN TIME 12.9 SECONDS (12.5-14.3)
[2021-01-01 17:24] LABS: PARTIAL THROMBOPLASTIN TIME 30.9 SECONDS (24.2-38.5)
[2021-01-01 18:40] LABS: BASO # 0.1 10^3/uL (0.0-0.2); BASO % 0.8 % (0.0-1.0); EOS # 0.1 10^3/uL (0.0-0.5); EOS % 1.1 % (0.0-3.0); HEMATOCRIT 42.7 % (36.0-47.0); HEMOGLOBIN 14.4 g/dl (12.0-15.5); LYMPH # 1.8 10^3/uL (1.5-5.0); MEAN CORPUSCULAR HEMOGLOBIN 29.3 pg (27.0-33.0); MEAN CORPUSCULAR HGB CONC 33.7 g/dl (32.0-36.5); MONO # 0.6 10^3/uL (0.0-0.8); MONO % 7.2 % (2.0-8.0); NEUTROPHILS # 5.7 10^3/uL (1.5-8.5); NEUTROPHILS % 68.7 % (36.0-66.0); PLATELET COUNT, AUTOMATED 246 10^3/uL (150-450); RED BLOOD COUNT 4.91 10^6/uL (4.00-5.40); WHITE BLOOD COUNT 8.3 10^3/uL (4.0-10.0)
[2021-01-01 18:55] LABS: HEMOGLOBIN A1c 6.7 %
[2021-01-01 19:18] LABS: BILIRUBIN,TOTAL 0.4 MG/DL (0.2-1.0); CALCIUM LEVEL 9.3 MG/DL (8.8-10.2); CREATININE FOR GFR 1.11 MG/DL (0.55-1.30); FREE T4 1.08 NG/DL (0.76-1.46); GLOMERULAR FILTRATION RATE 51.9 (>45); PTH INTACT 30.3 PG/ML (18.5-88.0); THYROID STIMULATING HORMONE 1.54 uIU/ML (0.358-3.740); TOTAL 25(OH) VITAMIN D 43.5 NG/ML (30.0-100.0); TOTAL PROTEIN 7.1 GM/DL (6.4-8.2)
== END ==
LOC: M PLAIMG 15:02
PROVIDERS: ATTEND Family Medicine
DX: Z01.818 Encounter for other preprocedural examination (principal); M85.80 Other specified disorders of bone density and structure, unspecified site; E11.9 Type 2 diabetes mellitus without complications

== ENCOUNTER 2021-01-04 06:03 | Day surgery (SDC) | payer OTHER ==
[~2021-01-04] VITALS: Ht 167.6 cm; Wt 83.0 kg
[~2021-01-04 06:03] MED LIST changes: -FLUTISP; +FLUTISP NARES; +LR 1,000 ML IV ONE
[2021-01-04] MEDS ORDERED: fentaNYL 250 MCG/5 ML INJECTION (J3010) As Ordered ONE (07:22)
[2021-01-04] MEDS ORDERED: propofoL 200 MG/20 ML VIAL As Ordered ONE (07:22)
[2021-01-04] MEDS ORDERED: ONDANSETRON 4MG/2ML VIAL As Ordered ONE (07:22)
[2021-01-04] MEDS ORDERED: LIDOCAINE 2% 100MG/5ML SDV (FOR ANES.) As Ordered ONE (07:22)
[2021-01-04] MEDS ORDERED: ROCURONIUM BROMIDE 50 MG/5 ML VIAL As Ordered ONE (07:22)
[2021-01-04] MEDS ORDERED: dexameTHASONE 4 MG/ML 1ML VIAL (J1100 PER 1MG) As Ordered ONE (07:22)
[2021-01-04] MEDS ORDERED: MIDAZOLAM INJ 2MG/2ML VIAL (J2250 PER 1MG) As Ordered ONE (07:22)
[2021-01-04] MEDS ORDERED: SCOPOLAMINE 1MG TRANSDERMAL PATCH As Ordered ONE (07:41)
[2021-01-04] MEDS ORDERED: BUPIVACAINE HCL 0.25% 30ML VIAL As Ordered ONE (07:41)
[2021-01-04] MEDS ORDERED: ceFAZolin 2 GM/D5W 50 ML IV BAG (J0690 PER 500MG) As Ordered ONE (07:58)
[2021-01-04] MEDS ORDERED: TRANEXAMIC ACID 100 MG/ML 10ML VIAL As Ordered ONE (08:01)
[2021-01-04] MEDS ORDERED: PHENYLephrine 500MCG 5ML (100MCG/ML) SYRINGE As Ordered ONE (08:33)
[2021-01-04] MEDS ORDERED: ePHEDrine SULFATE 25 MG/5 ML(5MG/ML) SYRINGE As Ordered ONE ×2 (08:33→08:38)
[2021-01-04] MEDS ORDERED: METOCLOPRAMIDE INJ 10MG/2ML VIAL (J2765 PER 1) As Ordered ONE (09:02)
[2021-01-04] MEDS ORDERED: SUGAMMADEX SODIUM 500 MG/5 ML VIAL (BRIDION) As Ordered ONE (09:13)
[2021-01-04] MEDS ORDERED: ACETAMINOPHEN 1000MG 100ML IV BTL (OFIRMEV) (J0131 PER 10MG) As Ordered ONE (09:14)
[2021-01-04] MEDS ORDERED: HYDROmorphone HCL 2 MG/ML 1ML VIAL (J1170) As Ordered ONE (09:21)
[2021-01-04] MEDS ORDERED: LACRILUBE (AKWA TEARS) OPHTH OINT 3.5 GM As Ordered ONE (09:23)
--- NOTE | 2021-01-04 09:51 | REP ---
INDICATION: LEFT PROXIMAL HUMERUS SYMPTOMATIC HARDWARE REMOVAL. COMPARISON: Comparison shoulder radiographs November 06, 2020.. TECHNIQUE: Four views. 9.2 seconds of fluoroscopy time is reported. FINDINGS: A sequence of 4 last image hold fluoroscopically obtained spot radiographs the left shoulder are provided. IMPRESSION: Procedural imaging. <Electronically signed by Bekc Pedraza > 01/04/21 0935
[2021-01-04] MEDS: LABETALOL 100MG/20ML VIAL IV PRN ×4 (10:05→10:20)
[2021-01-04] MEDS ORDERED: oxyCODONE 5MG TAB PO PRN (10:10)
[2021-01-04] MEDS ORDERED: LR 1,000 ML IV SCH (10:10)
[2021-01-04] MEDS ORDERED: fentaNYL 100 MCG/2 ML INJECTION (J3010) IV PRN (10:10)
[2021-01-04] MEDS ORDERED: ONDANSETRON 4MG/2ML VIAL IV PRN (10:10)
[2021-01-04] MEDS ORDERED: ONDANSETRON 4MG/2ML VIAL IV ONE (11:25)
[2021-01-04 12:50] VITALS: BP 132/67
--- NOTE | 2021-01-04 13:51 | RO ---
OPERATIVE NOTE DATE OF OPERATION: 01/04/2021 PREOPERATIVE DIAGNOSIS: Symptomatic hardware of the left proximal humerus. POSTOPERATIVE DIAGNOSIS: Symptomatic hardware of the left proximal humerus. PROCEDURE: Left proximal humerus hardware removal. SURGEON: Frederic Glass MD. SALES PROJECT MANAGER: None. SUPERVISING ATTENDING: Frederic Glass MD. ANESTHESIA: FINDINGS: Patient had symptomatic proximal screw within the previously placed proximal humerus fracture implant. INDICATIONS: This is a 70-year-old female who sustained a left proximal humerus fracture 12 weeks prior. She underwent an open reduction internal fixation of the proximal humeral shaft fracture as described above. She went on to uneventful union of the fracture and had good use of her arm. However, on an axillary radiograph in clinic, it was appreciated that one of the screws was just a touch proud in the proximal humerus, and this was indicated for removal in order to prevent symptoms in the future. She was indicated for a screw removal of the previously placed humeral shaft implant. ANESTHESIA: GETA. TOURNIQUET TIME: None used. ESTIMATED BLOOD LOSS: 50 mL. IV FLUIDS: Please see Anesthesia report. IV ANTIBIOTICS: Ancef 2 grams. IMPLANTS: None. Previously placed Wanda plate, humerus shaft plate. CULTURES: None. SPECIMENS: None. DESCRIPTION OF PROCEDURE: Patient was met in the preoperative holding area where the patient's operative extremity was signed. Patient's consent was confirmed to be correct, and patient's identity was confirmed to be correct. The patient was then transported to the operating theater where she was placed in the supine position in the beach chair. Safety straps were secured to the patient and the bed. All bony prominences were well padded. The bilateral lower extremities had SCDs placed. A time out was called which confirmed the correct patient, correct operative extremity, and correct consent. All staff were in agreement. The patient was then draped in the usual sterile fashion. We began the procedure by marking out her previous surgical incision from the coracoid distally down to the lateral condyle of the patient's elbow. I used the previous surgical incision scar as a skin marker. I incised approximately 3 inches of the skin incision and utilized the previously made deltopectoral interval. The cephalic vein was protected throughout the case. After dissecting through this interval, I was able to identify the plate, and the scar tissue overlying the plate was removed using electrocautery. I placed a Hohmann in order to reflect the deltoid musculature and identified the screw using fluoroscopy which was then removed with a hand screwdriver. At the conclusion of the hardware removal, I copiously irrigated the surgical site using 3 liters of normal saline and confirmed again with the fluoroscopic image that the screw was removed. We then closed the dermal layer using 2-0 Vicryl and closed the skin using an interrupted 3-0 nylon suture in mattress fashion. The patient was then extubated without complication and transferred to the postanesthesia care unit. At this point in time, the patient will be range of motion as tolerated to the left upper extremity. She will return to the clinic in 10-14 days for a postoperative wound check and suture removal. She is able to weight bear as tolerated to the left upper extremity and range of motion as tolerated. She will continue her physical therapy for range of motion of the left shoulder. A prescription for the patient will be completed to include Percocet for pain control, Zofran, and Colace. The patient will follow up in two weeks.
[2021-01-05] MEDS ORDERED: MAGN500T12 PO (13:03)
== END 2021-01-04 12:52 | disposition home or self-care (01) ==
LOC: M SDC 06:03
PROVIDERS: ATTEND Orthopaedic Surgery
DX: Z47.2 Encounter for removal of internal fixation device (principal); I12.9 Hypertensive chronic kidney disease with stage 1 through stage 4 chronic kidney disease, or unspecified chronic kidney disease; N18.30 Chronic kidney disease, stage 3 unspecified; E11.9 Type 2 diabetes mellitus without complications; M81.0 Age-related osteoporosis without current pathological fracture; K21.9 Gastro-esophageal reflux disease without esophagitis; E78.00 Pure hypercholesterolemia, unspecified; D64.9 Anemia, unspecified; Z79.84 Long term (current) use of oral hypoglycemic drugs; Z79.82 Long term (current) use of aspirin; Z79.899 Other long term (current) drug therapy; Z91.018 Allergy to other foods
CPT/HCPCS: 20680; 76000; J0131; J0690; J1100; J1170; J2250; J2370; J2405; J2765; J3010

== ENCOUNTER 2021-01-05 11:28 | Observation (INO) | payer OTHER ==
[~2021-01-05] VITALS: Ht 162.6 cm; Wt 83.2 kg
[~2021-01-05 11:28] MED LIST changes: -LR 1,000 ML IV ONE
[2021-01-05] MEDS ORDERED: MAGN500T12 PO (13:03)
[2021-01-05 13:24] LABS: BASO % 0.3 % (0.0-1.0); EOS # 0.1 10^3/uL (0.0-0.5); EOS % 0.4 % (0.0-3.0); HEMATOCRIT 38.6 % (36.0-47.0); HEMOGLOBIN 12.9 g/dl (12.0-15.5); LYMPH # 1.9 10^3/uL (1.5-5.0); LYMPH % 17.1 % (24.0-44.0); MEAN CORPUSCULAR HEMOGLOBIN 28.5 pg (27.0-33.0); MEAN CORPUSCULAR HGB CONC 33.4 g/dl (32.0-36.5); MEAN CORPUSCULAR VOLUME 85.4 fl (80.0-96.0); MONO # 0.8 10^3/uL (0.0-0.8); MONO % 6.7 % (2.0-8.0); NEUTROPHILS # 8.4 10^3/uL (1.5-8.5); NEUTROPHILS % 75.1 % (36.0-66.0); PLATELET COUNT, AUTOMATED 228 10^3/uL (150-450); RED BLOOD COUNT 4.52 10^6/uL (4.00-5.40); WHITE BLOOD COUNT 11.1 10^3/uL (4.0-10.0)
[2021-01-05] MEDS ORDERED: ACETAMINOPHEN TAB 650MG DOSE (2X325MG) PO PRN (13:35)
[2021-01-05] MEDS ORDERED: FLUTICASONE PROP 0.05% NASAL SPRAY 16 GM (FLONASE) NARES PRN (13:35)
--- NOTE | 2021-01-05 13:44 | HPEPDOC ---
[facility] Medical History & Physical Date of Admission Jan 05, 2021 Date of Service: Jan 05, 2021 Primary Care Physician: SHAKILA CHAVEZ MD Attending Physician: MONTANA WALLER DO History and Physical CHIEF COMPLAINT: Postoperative bleeding at left proximal humerus HISTORY OF PRESENT ILLNESS: Patient had bilateral upper extremity humerus fractures in September 2020. She was taken to the OR for removal of hardware (screw) yesterday of the left upper extremity. Postoperatively everything went without issue. She stated that when she woke up this morning she had bleeding into her bandage, which apparently had continued to bleed throughout the day. She had tried to call the orthopedics office, but was unsuccessful therefore presented to the emergency department for evaluation. In the ED she was found to have quite a bit of bleeding, no purulence or any other concerning drainage, stitches appears to be in the place. Bleeding seems to stop with compression. Orthopedics was called, is a recommendation to place a pressure bandage with an Dylan bandage. Hospitalist was called to admit the patient such that she could be observed overnight, orthopedic surgeon will come and evaluate later. CODE STATUS: Full code PAST MEDICAL HISTORY: Diabetes mellitus type 2 Hyperlipidemia Hypertension GERD Vitamin B12 deficiency History of hypomagnesemia Iron deficiency Chronic kidney disease stage III Former smoker Obesity PAST SURGICAL HISTORY: Total right knee replacement 08/2016 Cholecystectomy 1998 Left humerus ORIF, [facility], September 2020 RIght humerus fracture repair with reversal of total shoulder arthroplasty in [place] September 2020 SOCIAL HISTORY: Quit smoking greater than 10 years ago, drinks alcohol occasionally, denies recreational drug use. FAMILY HISTORY: Father had diabetes mellitus type 2. Mother had breast cancer, kidney cancer, coronary artery disease, diabetes mellitus type 2. She also has 2 brothers who have diabetes as well. REVIEW OF SYSTEMS: Constitutional: Patient denies fevers, chills, night sweats, recent weight gain/loss. Cardiovascular: Patient denies chest discomfort/pain, palpitations, exertional dyspnea, orthopnea, edema of the extremities, claudication. Respiratory: Patient denies dyspnea, wheezing, cough, hemoptysis, sputum product ion. PHYSICAL EXAMINATION: General: Awake, alert, oriented x3. She is in no acute distress. HEENT: Head normocephalic atraumatic, conjunctiva are pink, sclera are nonicteric, buccal mucosa is pink and moist with no lesions in the oropharynx. Hearing is grossly intact to conversation. Respiratory: Clear to auscultation bilaterally with no wheezes, rales, or rhonchi. Cardiovascular: Regular rate and rhythm, with no rubs, gallops, or murmur. Abdomen: Soft, nontender, nondistended, no hepatosplenomegaly appreciated. Bowel sounds present. Extremities: 2+ pulses in the radial and dorsalis pedis bilaterally. No evidence of clubbing or cyanosis. Left upper extremity now has a compression wrap with Dylan bandage on it. Per report from the ED apparently she did soak through her postsurgical bandage and was also beginning to soak into an ABD pad. No purulence, just blood. ASSESSMENT: Postoperative bleeding of the left upper extremity status post hardware removal performed 01/04/2021. Remainder of comorbid conditions as listed in the past medical history above PLAN: I called and spoke with her surgeon , he wishes to have the patient admitted for observation for 24 hours. We will give 1 g of tranexamic acid at this time to help stop the bleeding, and per his evaluation, may give another one this evening. Otherwise, we will continue all of her home medications at their usual dose for her chronic medical conditions as listed below Vital Signs Vital Signs Date Time Temp Pulse Resp B/P (MAP) Pulse Ox O2 Delivery O2 Flow Rate FiO2 01/05/21 11:53 01/05/21 11:29 97.4 76 18 98 Room Air Laboratory Data Labs 24H Laboratory Tests 2 01/05/21 12:57: Immature Granulocyte % (Auto) 0.4, Neutrophils (%) (Auto) 75.1H, Lymphocytes (%) (Auto) 17.1L, Monocytes (%) (Auto) 6.7, Eosinophils (%) (Auto) 0.4, Basophils (%) (Auto) 0.3, Neutrophils # (Auto) 8.4, Lymphocytes # (Auto) 1.9, Monocytes # (Auto) 0.8, Eosinophils # (Auto) 0.1, Basophils # (Auto) 0.0, Nucleated Red Blood Cells % (auto) 0.0 01/05/21 13:05: CBC/BMP Laboratory Tests 01/05/21 12:57 Home Medications Scheduled Aspirin (Ecotrin) 81 Mg Tablet.dr 81 MG PO DAILY STOPPED PER DOCTOR'S ORDERS BEFORE PROCEDURE Atorvastatin Calcium (Atorvastatin Calcium) 40 Mg Tablet, 40 MG PO DAILY Cholecalciferol (Vitamin D3) (Vitamin D3) 1,000 Unit Tablet, 1,000 UNITS PO QHS Cyanocobalamin (Vitamin B-12) (Vitamin B-12) 1,000 Mcg Capsule, 1,000 MCG PO QHS Enalapril Maleate (Enalapril Maleate) 20 Mg Tablet, 20 MG PO BID Famotidine (Famotidine) 20 Mg Tablet, 20 MG PO BID Ferrous Sulfate (Ferrous Sulfate) 325 Mg Tablet.dr, 325 MG PO DAILY Magnesium Oxide (Magnesium Oxide) 500 Mg Tablet, 500 MG PO QHS Metformin HCl (Metformin HCl ER) 500 Mg Tab.er.24h, 500 MG PO BID Semaglutide (Ozempic) 0.25 Mg/0.2 Ml Pen.injctr, 0.25 MG SC QWEEK Thursday Scheduled PRN Fluticasone Propionate (Fluticasone Propionate) 16 Gm [place].susp, 1 SPRAY NARES DAILY PRN for CONGESTION Allergies Coded Allergies: [place] (Verified Allergy, Intermediate, rash, 12/11/20) strawberry (Verified Allergy, Intermediate, rash, 12/11/20) A-FIB/CHADSVASC A-FIB History Current/History of A-Fib/PAF?: No Treatment Other anticoagulant ordered: DVT Propylaxis with Teds Reason Anticoagulant not given: Current bleeding MONTANA WALLER DO Jan 05, 2021 13:44
[2021-01-05 13:55] LABS: CALCIUM LEVEL 8.6 MG/DL (8.8-10.2); CREATININE FOR GFR 1.12 MG/DL (0.55-1.30); GLOMERULAR FILTRATION RATE 51.3 (>45)
[2021-01-05 15:14] VITALS: BP 152/71
[2021-01-05] MEDS ORDERED: TRANEXAMIC ACID INJection 1,000 MG in D5W 100 ML IV ONE (16:00)
[2021-01-05 20:00] VITALS: BP 129/71
[2021-01-05] MEDS ORDERED: CYANOCOBALAMIN 500 MCG TAB PO SCH (21:00)
[2021-01-05] MEDS ORDERED: MAGNESIUM OXIDE 400MG TAB (MAG-OX) PO SCH (21:00)
[2021-01-05] MEDS ORDERED: VITAMIN D 1,000 INTERNATIONAL UNITS TABLET PO SCH (21:00)
[2021-01-05] MEDS: ENALAPRIL MALEATE 10 MG TAB PO SCH (21:52)
[2021-01-05] MEDS: FAMOTIDINE 20 MG TAB PO SCH (21:53)
[2021-01-05] MEDS: metFORMIN XR 500MG TAB *GLUCOPHAGE XR PO SCH (22:43)
[2021-01-06] VITALS: BP 110/59
[2021-01-06 04:00] VITALS: BP 138/62
[2021-01-06 07:38] LABS: HEMATOCRIT 36.8 % (36.0-47.0); HEMOGLOBIN 12.2 g/dl (12.0-15.5); MEAN CORPUSCULAR HEMOGLOBIN 28.6 pg (27.0-33.0); MEAN CORPUSCULAR HGB CONC 33.2 g/dl (32.0-36.5); MEAN CORPUSCULAR VOLUME 86.4 fl (80.0-96.0); PLATELET COUNT, AUTOMATED 192 10^3/uL (150-450); RED BLOOD COUNT 4.26 10^6/uL (4.00-5.40); WHITE BLOOD COUNT 6.4 10^3/uL (4.0-10.0)
[2021-01-06 07:59] VITALS: BP 140/65
[2021-01-06] MEDS: FAMOTIDINE 20 MG TAB PO SCH (08:32)
[2021-01-06] MEDS: metFORMIN XR 500MG TAB *GLUCOPHAGE XR PO SCH (08:33)
[2021-01-06 08:34] VITALS: BP 140/65
[2021-01-06] MEDS: ENALAPRIL MALEATE 10 MG TAB PO SCH (08:34)
[2021-01-06] MEDS ORDERED: ASPIRIN 81MG ENTERIC TABLET PO SCH (09:00)
[2021-01-06] MEDS ORDERED: ATORVASTATIN 20 MG TAB PO SCH (09:00)
[2021-01-06] MEDS ORDERED: FERROUS SULFATE 325MG TAB PO SCH (09:00)
--- NOTE | 2021-01-06 14:14 | ER ---
ER CONSULTATION DATE: 01/05/2021 CONSULTING SERVICE: Orthopedic surgery. CONSULTING PHYSICIAN: Frederic Glass M.D. HISTORY OF PRESENT ILLNESS: This is a 70-year-old female who underwent a hardware removal of the left proximal humerus on January 04, 2021 by myself. The patient had a slightly prominent screw removed from a previous surgery 12 weeks prior from a left proximal humerus shaft fracture. The surgery on January 04, 2021 was uneventful. However, patient experienced some mild breakthrough bleeding postoperative day #1 from the surgery. She presented to the [facility] emergency department for wound dress change. Due to patient's anxiety and concerns of the postoperative bleeding, the patient was admitted to the hospital, where she received 1 gram of tranexamic acid in order to control her bleeding and for wound dressing. The patient was admitted to the floor for observation for 24 hours in order to ensure the patient's surgical wound was clean and hemostasis was obtained. PAST MEDICAL HISTORY: 1. Diabetes mellitus type 2. 2. Hyperlipidemia. 3. Hypertension. 4. Gastroesophageal reflux disease (GERD). 5. Vitamin B 12 deficiency. 6. Chronic kidney disease stage III. 7. Former smoker. 8. Obesity. PAST SURGICAL HISTORY: 1. Total knee replacement in 2016. 2. Cholecystectomy 1998. 3. Left humerus open reduction internal fixation (ORIF), [facility] September 2020. 4. Right humerus reverse total shoulder arthroplasty in [place] September 2020. SOCIAL HISTORY: Quit smoking 10 years prior. Social drinker. Non-intravenous drug user. FAMILY HISTORY: Diabetes type 2. REVIEW OF SYSTEMS: A 14 point review of systems is negative unless otherwise described in the history of present illness (HPI), above. PHYSICAL EXAMINATION: GENERAL: Alert to person, time and place. LEFT UPPER EXTREMITY: She had scant drainage after I observed the wound. Her bleeding was well controlled after 1 gram of tranexamic acid (TXA). She was otherwise neurovascular intact to the left upper extremity. She had 5/5 motor strength to the musculocutaneous, axillary, radial, median and ulnar nerve distributions. She had sensation intact to light touch to the musculocutaneous, axillary, radial, median and ulnar nerve distributions as well. Brisk capillary refill to the digits and 2+ radial and ulnar pulses. Surgical site was clean, dry and intact. There is scant, if any, bleeding to the surgical wound postoperative day #1. IMAGING DATA: Radiographs done and taken. IMPRESSION: Patient received a wound dressing changed and otherwise is doing well. She will be observed overnight. PLAN: The patient's postsurgical wound bleeding is well controlled. She received 1 gram of tranexamic acid (TXA), which likely helped to tamponade the postoperative bleeding. She likely had postsurgical bleeding after surgery. However, her wound dressing had contained some of the drainage which then seeped out throughout the night. At this point in time, the bleeding is well controlled. The patient will be observed overnight to ensure she has no additional bleeding from her postsurgical wound and will be discharged on January 06, 2021. The patient will follow up at the [facility] orthopedic clinic in two weeks for postoperative wound check. She is weightbearing as tolerated to the left upper extremity and range of motion as tolerated to the left shoulder.
--- NOTE | 2021-01-06 21:28 | DS.PDOC ---
Discharge Summary General Date of Admission Jan 05, 2021 at 13:31 Date of Discharge Jan 06, 2021 Specialist/Consultants Involve Orthopedic surgery, Dr. Glass Discharge Summary PROCEDURES PERFORMED DURING STAY: None ADMITTING DIAGNOSES: 1. Postoperative bleeding 2. Diabetes mellitus type 2 3. Hyperlipidemia 4. Hypertension 5. GERD 6. Vitamin B12 deficiency 7. CKD stage 3 8. Obesity DISCHARGE DIAGNOSES: 1. Postoperative bleeding 2. Diabetes mellitus type 2 3. Hyperlipidemia 4. Hypertension 5. GERD 6. Vitamin B12 deficiency 7. CKD stage 3 8. Obesity COMPLICATIONS/CHIEF COMPLAINT: Postoperative Bleeding From Incision.. HISTORY OF PRESENT ILLNESS: Copied from admitting attending's H&P " Patient had bilateral upper extremity humerus fractures in September 2020. She was taken to the OR for removal of hardware (screw) yesterday of the left upper extremity. Postoperatively everything went without issue. She stated that when she woke up this morning she had bleeding into her bandage, which apparently had continued to bleed throughout the day. She had tried to call the orthopedics office, but was unsuccessful therefore presented to the emergency department for evaluation. In the ED she was found to have quite a bit of bleeding, no purulence or any other concerning drainage, stitches appears to be in the place. Bleeding seems to stop with compression. Orthopedics was called, is a recommendation to place a pressure bandage with an Dylan bandage. Hospitalist was called to admit the patient such that she could be observed overnight, orthopedic surgeon will come and evaluate later. " HOSPITAL COURSE: Patient was given tranexamic acid for post operative bleeding. Orthopedic surgery evaluated patient afterwards. The wound tamponaded. The following morning, patient felt well. She did not bleed though the bandages. She felt well and felt ready for home. She was subsequently discharged home. DISCHARGE MEDICATIONS: Please see below. ALLERGIES: Please see below. PHYSICAL EXAMINATION ON DISCHARGE: VITAL SIGNS: Please see below. GENERAL: Comfortable, in no apparent distress. HEENT: Head normocephalic/atraumatic, EOMI, sclera clear. NECK: Supple. RESPIRATORY: Lungs clear to auscultation bilaterally, no rales, wheeze or rhonchi. CARDIOVASCULAR: Regular rate and rhythm. ABDOMEN: Soft, nontender, no guarding or rebound tenderness. Normal bowel sounds. PSYCHOLOGICAL: Normal mood and affect LABORATORY DATA: Please see below. IMAGING: None PROGNOSIS: Good ACTIVITY: As tolerated. DIET: Carbohydrate consistent diet DISCHARGE PLAN: Home DISPOSITION: Home, Self-Care. DISCHARGE INSTRUCTIONS: 1. Follow up with PCP in a week 2. Follow up with orthopedic surgery in 2 weeks ITEMS TO FOLLOWUP ON ON OUTPATIENT: 1. Hemoglobin DISCHARGE CONDITION: Stable. Total time spent on discharge planning, discharge summary, and medication reconciliation: 25 minutes Vital Signs/I&Os Vital Signs Date Time Temp Pulse Resp B/P (MAP) Pulse Ox O2 Delivery O2 Flow Rate FiO2 01/06/21 08:34 140/65 01/06/21 07:59 97.5 62 18 99 Room Air I&O- Last 24 Hours up to 6 AM 01/06/21 06:00 Intake Total 110 ml Balance 110 ml Laboratory Data Labs 24H Laboratory Tests 2 01/06/21 07:22: Nucleated Red Blood Cells % (auto) 0.0 CBC/BMP Laboratory Tests 01/06/21 07:22 Discharge Medications Scheduled Aspirin (Ecotrin) 81 Mg Tablet.dr, 81 MG PO DAILY, (Reported) STOPPED PER DOCTOR'S ORDERS BEFORE PROCEDURE Atorvastatin Calcium (Atorvastatin Calcium) 40 Mg Tablet, 40 MG PO DAILY, (Reported) Cholecalciferol (Vitamin D3) (Vitamin D3) 1,000 Unit Tablet, 1,000 UNITS PO QHS, (Reported) Cyanocobalamin (Vitamin B-12) (Vitamin B-12) 1,000 Mcg Capsule, 1,000 MCG PO QHS, (Reported) Enalapril Maleate (Enalapril Maleate) 20 Mg Tablet, 20 MG PO BID, (Reported) Famotidine (Famotidine) 20 Mg Tablet, 20 MG PO BID, (Reported) Ferrous Sulfate (Ferrous Sulfate) 325 Mg Tablet.dr, 325 MG PO DAILY, (Reported) Magnesium Oxide (Magnesium Oxide) 500 Mg Tablet, 500 MG PO QHS, (Reported) Metformin HCl (Metformin HCl ER) 500 Mg Tab.er.24h, 500 MG PO BID, (Reported) Semaglutide (Ozempic) 0.25 Mg/0.2 Ml Pen.injctr, 0.25 MG SC QWEEK, (Reported) Thursday Scheduled PRN Fluticasone Propionate (Fluticasone Propionate) 16 Gm [place].susp, 1 SPRAY NARES DAILY PRN for CONGESTION, (Reported) Allergies Coded Allergies: [place] (Verified Allergy, Intermediate, rash, 12/11/20) strawberry (Verified Allergy, Intermediate, rash, 12/11/20) PENELOPE ESTEBAN DO Jan 06, 2021 21:28
== END 2021-01-06 12:35 | disposition home or self-care (01) ==
LOC: M ED 11:28 → M ED INP 13:31 → ENRESERV 14:40 → M PCU 15:08
PROVIDERS: ADMIT Neuromusculoskeletal Medicine & OMM; ATTEND Internal Medicine
DX: L76.22 Postprocedural hemorrhage of skin and subcutaneous tissue following other procedure (principal); E11.9 Type 2 diabetes mellitus without complications; E78.5 Hyperlipidemia, unspecified; I12.9 Hypertensive chronic kidney disease with stage 1 through stage 4 chronic kidney disease, or unspecified chronic kidney disease; N18.30 Chronic kidney disease, stage 3 unspecified; E66.9 Obesity, unspecified; K21.9 Gastro-esophageal reflux disease without esophagitis; Z79.82 Long term (current) use of aspirin; Z79.84 Long term (current) use of oral hypoglycemic drugs; Z91.018 Allergy to other foods; Z79.899 Other long term (current) drug therapy
CPT/HCPCS: 36415; 80048; 85025; 85027; 96365; 99284; U0002

== ENCOUNTER → 2021-01-16 | Outpatient (CLI) | payer OTHER, MEDICARE ==
[~2021-01-16] MED LIST changes: +MAGN500T12 PO
--- NOTE | 2021-01-16 15:18 | REP ---
INDICATION: ENCOUNTER FOR OTHER SPECIFIED SURGICAL AFTERCARE. COMPARISON: 10/11/2020 and 11/06/2020 TECHNIQUE: There are 7 views. FINDINGS: There is ORIF of the left humeral shaft with a stabilization plate. The fracture of the proximal humeral shaft is been satisfactorily reduced. The lucent fracture line persists and there is exuberant callus surrounding the fracture site. One compared to 10/11/2020 I suspect there is demineralization, particularly the proximal fracture fragment. IMPRESSION: Exuberant callus formation. Persistent lucent fracture line. Demineralization. <Electronically signed by Denilson Mtz > 01/16/21 [id number]
== END ==
LOC: M SOG 13:28
PROVIDERS: ATTEND Orthopaedic Surgery
DX: Z48.89 Encounter for other specified surgical aftercare (principal); S42.302D Unspecified fracture of shaft of humerus, left arm, subsequent encounter for fracture with routine healing; X58.XXXD Exposure to other specified factors, subsequent encounter; Y92.9 Unspecified place or not applicable; Y99.9 Unspecified external cause status; Y93.9 Activity, unspecified

== ENCOUNTER → 2021-02-28 | Outpatient (CLI) | payer MEDICARE ==
--- NOTE | 2021-02-28 15:06 | REPMRS ---
Patient History The patient states she has not had a clinical breast exam in over a year. Family history of breast cancer at age 50 or over in mother, colorectal cancer at age 50 or over in paternal aunt. Moderna vaccine 09/01/20 right arm. 09/11/20 right arm. Patient states no breast complaints today. Patient has signed MRS History Sheet. Digital Woman Screen Mammo: February 28, 2021 - Exam #: [id number] Bilateral CC and MLO view(s) were taken. Technologist: RT Concepción Prior study comparison: October 26, 2019, bilateral digital woman screen mammo performed at [facility]. October 07, 2018, bilateral digital woman screen mammo performed at [facility]. FINDINGS: There are scattered fibroglandular densities. Screening. Digital screening (2D) mammography was performed bilaterally in the CC and MLO projections. Additionally, breast tomosynthesis (3D mammography) was performed bilaterally in the CC and MLO projections. Todays exam was compared to the prior exam/exams. By history, the patient has no complaints of a palpable breast abnormality or other significant breast complaints. The breasts are unchanged in size and shape. There are no darlyn-soft tissue densities or spiculated masses. There is no internal architectural distortion. Calcifications are again seen in the breast/breasts. Some of these are in groups but no one group appears more suspicious than any other. There are no suspicious darlyn-calcific clusters. Skin thickening or nipple retraction is not present. IMPRESSION: BI-RADS Category 2- Benign Findings. There is no evidence of malignant alteration of the breasts. Followup examination recommended in one year. The [place] volumetric breast density category is B, there are scattered areas of fibroglandular densities. This mammogram was read with the assistance of [employer],an FDA approved computer aided detection system for mammography. The lifetime Tyrer-Cuzick score is 15 % Negative x-ray reports should not delay surgical consultation if a dominant or clinically suspicious mass is present. Not all breast cancers can be identified by mammography. Therefore, we recommend that you continue to perform regular breast self-examination and physical examination and then promptly contact your physician of any concerns or changes. Adenosis and dense breasts may obscure an underlying neoplasm. Assessment: BI-RADS/ACR category 2 mammogram. Benign Findings. Recommendation Routine screening mammogram of both breasts in 1 year. Electronically Signed By: Yoni Harris DO 02/28/21 [id number]
--- NOTE | 2021-02-28 15:33 | DEXAMM ---
INDICATION: M85.80 OSTEOPENIA. COMPARISON: None. TECHNIQUE: Bone density was measured using dual-energy x-ray absorptiometry (DEXA). FINDINGS: AP SPINE L1-L4 BMD 0.953 g/cm2 Young Adult T-Score -1.9 Age Matched Z-Score -0.3. LT FEMUR, TOTAL BMD 1.058 g/cm2 Young Adult T-Score 0.4 Age Matched Z-Score 1.8. LT NECK BMD 0.906 g/cm2 Young Adult T-Score -0.9 Age Matched Z-Score 0.7. RT FEMUR, TOTAL BMD 1.122 g/cm2 Young Adult T-Score 0.9 Age Matched Z-Score 2.3. RT NECK BMD 0.950 g/cm2 Young Adult T-Score -0.6 Age Matched Z-Score 1.0. IMPRESSION: There is low bone density of the spine. There is normal bone density of the left hip. There is normal bone density of the right hip. FOLLOW-UP: Recommendation for the next bone density exam: 2 years. <Electronically signed by Denilson Rios > 02/28/21 [id number]
== END ==
LOC: M WHC 14:13
PROVIDERS: ATTEND Family Medicine
DX: Z12.31 Encounter for screening mammogram for malignant neoplasm of breast (principal); M85.88 Other specified disorders of bone density and structure, other site; Z80.3 Family history of malignant neoplasm of breast; R92.1 Mammographic calcification found on diagnostic imaging of breast

== ENCOUNTER → 2021-09-18 | Outpatient (CLI) | payer MEDICARE, OTHER ==
[~2021-09-18] MED LIST changes: -D31000TA2 PO; +VITA100093 PO
[2021-09-18 10:06] LABS: HEMATOCRIT 40.9 % (36.0-47.0); HEMOGLOBIN 13.8 g/dl (12.0-15.5); MEAN CORPUSCULAR HEMOGLOBIN 30.2 pg (27.0-33.0); MEAN CORPUSCULAR HGB CONC 33.7 g/dl (32.0-36.5); MEAN CORPUSCULAR VOLUME 89.5 fl (80.0-96.0); PLATELET COUNT, AUTOMATED 219 10^3/uL (150-450); RED BLOOD COUNT 4.57 10^6/uL (4.00-5.40)
[2021-09-18 11:08] LABS: ALBUMIN 3.6 GM/DL (3.2-5.2); BILIRUBIN,TOTAL 0.7 MG/DL (0.2-1.0); CALCIUM LEVEL 8.7 MG/DL (8.8-10.2); CHOLESTEROL RISK RATIO 2.15 (<5); CREATININE FOR GFR 1.25 MG/DL (0.55-1.30); GLOMERULAR FILTRATION RATE 45.2 (>45); PERCENT SATURATION 34.8 % (13.2-45.0); POTASSIUM SERUM 4.6 MEQ/L (3.5-5.1); TOTAL PROTEIN 6.4 GM/DL (6.4-8.2)
== END ==
LOC: M WUC 08:15
PROVIDERS: ATTEND Family Medicine
DX: E78.2 Mixed hyperlipidemia (principal); E53.8 Deficiency of other specified B group vitamins; D50.9 Iron deficiency anemia, unspecified

== ENCOUNTER → 2021-09-30 | Outpatient (CLI) | payer MEDICARE, OTHER | LOC: M SOG 12:48 | PROVIDERS: ATTEND Orthopaedic Surgery | DX: Z48.89 Encounter for other specified surgical aftercare (principal); Z87.81 Personal history of (healed) traumatic fracture ==

== ENCOUNTER → 2022-03-07 | Outpatient (CLI) | payer MEDICARE, OTHER | LOC: M WHC 10:08 | PROVIDERS: ATTEND Nurse Practitioner Family | DX: Z12.31 Encounter for screening mammogram for malignant neoplasm of breast (principal); Z80.3 Family history of malignant neoplasm of breast ==

== ENCOUNTER → 2022-09-24 | Outpatient (CLI) | payer MEDICARE, OTHER ==
[~2022-09-24] MED LIST changes: +ENAL1TAB52 PO; -ENAL20TA11 PO; +FLUT50SP17 NARES; -FLUTISP NARES
[2022-09-24 10:39] LABS: CREATININE, URINE 91.1 MG/DL; MALB URINE SIEMENS < 3.0 MG/L; MAU/CREAT RATIO 3.2 MCG/MG (0.0-30.0)
[2022-09-24 10:43] LABS: ALBUMIN 3.7 G/DL (3.2-5.2); BILIRUBIN,TOTAL 0.6 MG/DL (0.3-1.2); CALCIUM LEVEL 9.1 MG/DL (8.3-10.6); CHOLESTEROL RISK RATIO 2.6 (<5); CREATININE FOR GFR 1.17 MG/DL (0.55-1.30); FERRITIN 57.1 NG/ML (7.3-270.7); FREE T4 0.99 NG/DL (0.89-1.76); GLOMERULAR FILTRATION RATE 48.7 (>39); HDL CHOLESTEROL 51.9 MG/DL (>40); LDL CHOLESTEROL 63.7 MG/DL (<100); MAGNESIUM LEVEL 1.4 MG/DL (1.8-2.4); NON-HDL-C 83.1 MG/DL; POTASSIUM SERUM 4.2 MMOL/L (3.5-5.1); TOTAL PROTEIN 6.5 G/DL (5.7-8.2)
[2022-09-24 10:44] LABS: THYROID STIMULATING HORMONE 2.55 uIU/ML (0.55-4.78); TOTAL 25(OH) VITAMIN D 54.4 NG/ML (20.0-100.0)
== END ==
LOC: M WUC 08:34
PROVIDERS: ATTEND Nurse Practitioner Family
DX: E11.9 Type 2 diabetes mellitus without complications (principal); I12.9 Hypertensive chronic kidney disease with stage 1 through stage 4 chronic kidney disease, or unspecified chronic kidney disease; E78.2 Mixed hyperlipidemia; D50.9 Iron deficiency anemia, unspecified; E55.9 Vitamin D deficiency, unspecified

== ENCOUNTER 2022-12-02 06:18 | Day surgery (SDC) | payer MEDICARE, OTHER ==
[~2022-12-02] VITALS: Ht 165.1 cm; Wt 87.6 kg
[~2022-12-02 06:18] MED LIST changes: +ALEN70TA82 PO; +CYCLOPENTOLATE 1% OPHTH SOLN 2ML BTL OS SCH; +OFLOXACIN 0.3 % (OCUFLOX) OPTH SOL 5ML OS SCH; +PHENYLEPHRINE 2.5% OPHTH SOL 2ML OS SCH; +PROPARACAINE 0.5% OPHTH SOL 15ML OS ONE; +TROPICAMIDE 1% OPHTH SOLN 15ML OS SCH
[2022-12-02] MEDS ORDERED: LIDOCAINE 1% SDV 5ML VIAL As Ordered ONE (06:40)
[2022-12-02] MEDS ORDERED: CEFUROXIME 1MG/0.1ML INTRACAMERAL INJ As Ordered ONE (06:41)
[2022-12-02] MEDS ORDERED: BSS IRR 500ML/OMIDRIA 4ML IRR BAG (OR ONLY) As Ordered ONE (06:41)
[2022-12-02] MEDS ORDERED: INSULIN LISPRO (NovoLOG) PER UNIT SC PRN (07:30)
[2022-12-02] MEDS ORDERED: fentaNYL 100 MCG/2 ML INJECTION As Ordered ONE (08:14)
[2022-12-02] MEDS ORDERED: MIDAZOLAM INJ 2MG/2ML VIAL As Ordered ONE (08:14)
[2022-12-02 08:54] VITALS: BP 136/80; TEMP 97.1; O2SAT 97
== END 2022-12-02 08:55 | disposition home or self-care (01) ==
LOC: M SDC 06:18
PROVIDERS: ATTEND Ophthalmology
DX: H25.12 Age-related nuclear cataract, left eye (principal); I10 Essential (primary) hypertension; E78.5 Hyperlipidemia, unspecified; E11.9 Type 2 diabetes mellitus without complications; K21.9 Gastro-esophageal reflux disease without esophagitis; D64.9 Anemia, unspecified; F41.9 Anxiety disorder, unspecified; M81.0 Age-related osteoporosis without current pathological fracture; Z87.891 Personal history of nicotine dependence; Z79.84 Long term (current) use of oral hypoglycemic drugs; Z79.899 Other long term (current) drug therapy; Z91.018 Allergy to other foods
CPT/HCPCS: 66984; J0697; J1097; J2250; J3010; V2632

== ENCOUNTER 2022-12-23 06:08 | Day surgery (SDC) | payer MEDICARE, OTHER ==
[~2022-12-23] VITALS: Ht 165.1 cm; Wt 86.2 kg
[~2022-12-23 06:08] MED LIST changes: +CYCLOPENTOLATE 1% OPHTH SOLN 2ML BTL OD SCH; -CYCLOPENTOLATE 1% OPHTH SOLN 2ML BTL OS SCH; +DICL1GEL3 TOP; +OFLOXACIN 0.3 % (OCUFLOX) OPTH SOL 5ML OD SCH; -OFLOXACIN 0.3 % (OCUFLOX) OPTH SOL 5ML OS SCH; +PHENYLEPHRINE 2.5% OPHTH SOL 2ML OD SCH; -PHENYLEPHRINE 2.5% OPHTH SOL 2ML OS SCH; +PROPARACAINE 0.5% OPHTH SOL 15ML OD ONE; -PROPARACAINE 0.5% OPHTH SOL 15ML OS ONE; +SEMA0.257 SQ; +TROPICAMIDE 1% OPHTH SOLN 15ML OD SCH; -TROPICAMIDE 1% OPHTH SOLN 15ML OS SCH
[2022-12-23] MEDS ORDERED: CEFUROXIME 1MG/0.1ML INTRACAMERAL INJ As Ordered ONE (06:35)
[2022-12-23] MEDS ORDERED: LIDOCAINE 1% SDV 5ML VIAL As Ordered ONE (06:35)
[2022-12-23] MEDS ORDERED: BSS IRR 500ML/OMIDRIA 4ML IRR BAG (OR ONLY) As Ordered ONE (06:36)
[2022-12-23] MEDS ORDERED: MIDAZOLAM INJ 2MG/2ML VIAL As Ordered ONE (07:16)
[2022-12-23] MEDS ORDERED: fentaNYL 100 MCG/2 ML INJECTION As Ordered ONE (07:16)
[2022-12-23 08:17] VITALS: BP 143/63; TEMP 97.3; O2SAT 98
== END 2022-12-23 08:30 | disposition home or self-care (01) ==
LOC: M SDC 06:08
PROVIDERS: ATTEND Ophthalmology
DX: H25.11 Age-related nuclear cataract, right eye (principal); E11.9 Type 2 diabetes mellitus without complications; I10 Essential (primary) hypertension; Z79.899 Other long term (current) drug therapy
CPT/HCPCS: 66984; J0697; J1097; J2250; J3010; V2632

== ENCOUNTER → 2023-04-06 | Outpatient (CLI) | payer MEDICARE, OTHER ==
[~2023-04-06] MED LIST changes: -CYCLOPENTOLATE 1% OPHTH SOLN 2ML BTL OD SCH; +DICL100G10 TOP; -DICL1GEL3 TOP; -OFLOXACIN 0.3 % (OCUFLOX) OPTH SOL 5ML OD SCH; -PHENYLEPHRINE 2.5% OPHTH SOL 2ML OD SCH; -PROPARACAINE 0.5% OPHTH SOL 15ML OD ONE; -TROPICAMIDE 1% OPHTH SOLN 15ML OD SCH
[2023-04-06 14:33] LABS: BASO # 0.1 10^3/uL (0.0-0.2); BASO % 0.6 % (0.0-1.0); EOS # 0.1 10^3/uL (0.0-0.5); EOS % 1.5 % (0.0-3.0); HEMATOCRIT 42.5 % (36.0-47.0); HEMOGLOBIN 14.4 g/dl (12.0-15.5); LYMPH # 1.7 10^3/uL (1.5-5.0); LYMPH % 21.1 % (24.0-44.0); MEAN CORPUSCULAR HGB CONC 33.9 g/dl (32.0-36.5); MEAN CORPUSCULAR VOLUME 91.4 fl (80.0-96.0); MONO # 0.7 10^3/uL (0.0-0.8); MONO % 8.4 % (2.0-8.0); NEUTROPHILS # 5.4 10^3/uL (1.5-8.5); NEUTROPHILS % 68.1 % (36.0-66.0); PLATELET COUNT, AUTOMATED 233 10^3/uL (150-450); RED BLOOD COUNT 4.65 10^6/uL (4.00-5.40)
[2023-04-07 00:24] LABS: ALBUMIN 3.9 G/DL (3.2-5.2); BILIRUBIN,TOTAL 0.7 MG/DL (0.3-1.2); CALCIUM LEVEL 9.1 MG/DL (8.3-10.6); CHOLESTEROL RISK RATIO 2.59 (<5); CREATININE FOR GFR 1.1 MG/DL (0.55-1.30); GLOMERULAR FILTRATION RATE 52.1 (>39); HDL CHOLESTEROL 55.8 MG/DL (>40); LDL CHOLESTEROL 60.4 MG/DL (<100); MAGNESIUM LEVEL 1.7 MG/DL (1.8-2.4); NON-HDL-C 89.2 MG/DL; PERCENT SATURATION 40.8 % (13.2-45.0); POTASSIUM SERUM 4.1 MMOL/L (3.5-5.1); TOTAL PROTEIN 6.9 G/DL (5.7-8.2)
[2023-04-07 00:28] LABS: FREE T4 1.01 NG/DL (0.89-1.76); THYROID STIMULATING HORMONE 2.114 uIU/ML (0.55-4.78)
[2023-04-07 00:49] LABS: CREATININE, URINE 25.9 MG/DL; MAU/CREAT RATIO 11.5 MCG/MG (0.0-30.0)
== END ==
LOC: M WUC 09:57
PROVIDERS: ATTEND Nurse Practitioner Family
DX: E11.9 Type 2 diabetes mellitus without complications (principal); I12.9 Hypertensive chronic kidney disease with stage 1 through stage 4 chronic kidney disease, or unspecified chronic kidney disease; E78.2 Mixed hyperlipidemia; E04.2 Nontoxic multinodular goiter; D50.9 Iron deficiency anemia, unspecified; E53.8 Deficiency of other specified B group vitamins; E55.9 Vitamin D deficiency, unspecified

== ENCOUNTER → 2023-10-05 | Outpatient (REF) | payer MEDICARE, OTHER ==
[~2023-10-05] MED LIST changes: -FLUT50SP17 NARES; +FLUTISP NARES
[2023-10-05 13:16] LABS: ALBUMIN 3.5 G/DL (3.2-5.2); BILIRUBIN,TOTAL 0.6 MG/DL (0.3-1.2); CALCIUM LEVEL 8.6 MG/DL (8.3-10.6); CHOLESTEROL RISK RATIO 2.74 (<5); CREATININE FOR GFR 1.15 MG/DL (0.55-1.30); FREE T4 0.96 NG/DL (0.89-1.76); GLOMERULAR FILTRATION RATE 49.5 (>39); HDL CHOLESTEROL 45.6 MG/DL (>40); LDL CHOLESTEROL 53.4 MG/DL (<100); MAGNESIUM LEVEL 1.7 MG/DL (1.8-2.4); NON-HDL-C 79.4 MG/DL; POTASSIUM SERUM 4.4 MMOL/L (3.5-5.1); TOTAL PROTEIN 6.3 G/DL (5.7-8.2)
[2023-10-05 13:25] LABS: THYROID STIMULATING HORMONE 2.268 uIU/ML (0.55-4.78)
== END ==
LOC: M SFHCPLAZ 10:20 → M LABWUC 10:20
PROVIDERS: ATTEND Nurse Practitioner Family
DX: E04.2 Nontoxic multinodular goiter (principal); E78.2 Mixed hyperlipidemia

== ENCOUNTER → 2024-03-17 | Outpatient (CLI) | payer MEDICARE | LOC: M WHC 10:22 | PROVIDERS: ATTEND Nurse Practitioner Family | DX: Z12.31 Encounter for screening mammogram for malignant neoplasm of breast (principal); R92.323 Mammographic fibroglandular density, bilateral breasts ==

== ENCOUNTER → 2024-04-07 | Outpatient (CLI) | payer MEDICARE, OTHER ==
[2024-04-07 13:34] LABS: HEMOGLOBIN A1c 7.9 % (4.0-6.0)
[2024-04-07 13:49] LABS: BILIRUBIN,TOTAL 0.4 MG/DL (0.3-1.2); CALCIUM LEVEL 9.7 MG/DL (8.3-10.6); CREATININE FOR GFR 1.15 MG/DL (0.55-1.30); GLOMERULAR FILTRATION RATE 49.4 (>39); MAGNESIUM LEVEL 1.9 MG/DL (1.8-2.4); POTASSIUM SERUM 4.8 MMOL/L (3.5-5.1)
[2024-04-07 15:36] LABS: CREATININE, URINE 106.8 MG/DL; MAU/CREAT RATIO 2.8 MCG/MG (0.0-30.0)
== END ==
LOC: M PLALAB 10:55
PROVIDERS: ATTEND Nurse Practitioner Family
DX: E11.9 Type 2 diabetes mellitus without complications (principal); I12.9 Hypertensive chronic kidney disease with stage 1 through stage 4 chronic kidney disease, or unspecified chronic kidney disease

== ENCOUNTER → 2025-03-31 | Outpatient (CLI) | payer MEDICARE | LOC: M WHC 13:53 | PROVIDERS: ATTEND Nurse Practitioner Family | DX: Z12.31 Encounter for screening mammogram for malignant neoplasm of breast (principal); M81.0 Age-related osteoporosis without current pathological fracture ==

== ENCOUNTER 2025-05-22 23:53 | Inpatient (IN) | payer MEDICARE ==
[~2025-05-22] VITALS: Ht 170.2 cm; Wt 91.0 kg
[2025-05-23 01:13] LABS: VENOUS BASE EXCESS -3.0 (-2.0-2.0); VENOUS HCO3 20.9 MMOL/L (23.0-27.0); VENOUS O2 SATURATION 96.0 % (60.0-80.0); VENOUS PARTIAL PRESSURE CO2 34.3 mmHg (38.0-50.0); VENOUS PARTIAL PRESSURE O2 83.2 mmHg (30.0-50.0); VENOUS PH 7.402 UNITS (7.330-7.430); VENOUS STANDARD HCO3 21.9 MMOL/L; VENOUS TOTAL CO2 21.9 MMOL/L (24.0-28.0)
[2025-05-23 01:17] LABS: BASO # 0.1 10^3/uL (0.0-0.2); BASO % 0.4 % (0.0-1.0); EOS # 0.1 10^3/uL (0.0-0.5); EOS % 0.4 % (0.0-3.0); LYMPH # 2.0 10^3/uL (1.5-5.0); LYMPH % 17.7 % (24.0-44.0); MONO # 1.0 10^3/uL (0.0-0.8); MONO % 9.2 % (2.0-8.0); NEUTROPHILS # 8.0 10^3/uL (1.5-8.5); NEUTROPHILS % 71.9 % (36.0-66.0); PLATELET COUNT, AUTOMATED 225 10^3/uL (150-450)
[2025-05-23 01:45] LABS: AMPHETAMINES LEVEL URINE NEGATIVE (NEGATIVE); BENZODIAZEPINES URINE NEGATIVE (NEGATIVE); COCAINE METABOLITE URINE NEGATIVE (NEGATIVE)
[2025-05-23 01:46] LABS: CANNABINOIDS URINE NEGATIVE (NEGATIVE); METHADONE URINE NEGATIVE (NEGATIVE); OPIATES URINE NEGATIVE (NEGATIVE); PHENCYCLIDINE URINE NEGATIVE (NEGATIVE)
[2025-05-23 01:49] LABS: ETHYL ALCOHOL (ETHANOL) < 0.003 % (0.000-0.010)
[2025-05-23 01:50] LABS: BARBITURATES URINE NEGATIVE (NEGATIVE); SALICYLATE LEVEL < 3.0 MG/DL (<30)
[2025-05-23 01:51] LABS: ALT/SGPT 26 U/L (7.0-40); AST/SGOT 38 U/L (<34); CALCIUM LEVEL 9.0 MG/DL (8.3-10.6); CARBON DIOXIDE LEVEL 21 MMOL/L (20-31); CHLORIDE LEVEL 102 MMOL/L (98-107); CK-MB VALUE MASS 8.0 NG/ML (<3.6); CREATININE FOR GFR 1.28 MG/DL (0.55-1.30); GLOMERULAR FILTRATION RATE 44.2 (>39); POTASSIUM SERUM 4.4 MMOL/L (3.5-5.1); SODIUM LEVEL 137 MMOL/L (136-145)
[2025-05-23 01:55] LABS: KETONE, URINE AUTO RFX TRACE mg/dL (NEGATIVE); MUCUS, URINE RFX SMALL (NEGATIVE); NITRITE, URINE AUTO RFX NEGATIVE (NEGATIVE); RBC, URINE AUTO RFX 20 /HPF (0-3); SQUAM EPITHELIAL CELL UR AURFX 7 /HPF (0-6); YEAST LIKE CELL URINE AUTO RFX SMALL
[2025-05-23 01:59] LABS: LEUKOCYTE ESTERASE UR AUTO RFX 2+ (NEGATIVE); WBC, URINE AUTO RFX 35 /HPF (0-3)
[2025-05-23 02:07] LABS: CPK CREATINE PHOSPHOKINASE 654 U/L (34-145); MB/CK RELATIVE INDEX 1.22 (< OR =4)
[2025-05-23 02:47] LABS: CK-MB VALUE MASS 7.7 NG/ML (<3.6)
[2025-05-23 02:50] LABS: CPK CREATINE PHOSPHOKINASE 619.0 U/L (34-145); MB/CK RELATIVE INDEX 1.24 (< OR =4)
[2025-05-23] MEDS: NS (Normal Saline) 0.9% 1,000 ML IV ONE (04:45)
[2025-05-23] MEDS: FLUCONAZOLE 50 MG TABLET PO ONE (04:46)
[2025-05-23] MEDS: cefTRIAXone SOD 1 GM in DEXTROSE 5% (D5W) ADV/MINI-BAG 50 ML IV ONE (04:46)
[2025-05-23] MEDS ORDERED: GLUCOSE 4 GM CHEW PO PRN (04:55)
[2025-05-23] MEDS ORDERED: GLUCAGON INJ 1 MG VIAL SC PRN (04:55)
[2025-05-23] MEDS ORDERED: DEXTROSE 50% 50 ML SYRINGE IV PRN (04:55)
[2025-05-23] MEDS ORDERED: NS (Normal Saline) 0.9% 1,000 ML IV SCH (05:35)
[2025-05-23] MEDS ORDERED: HOME MED LIST COMPLETE! XX SCH (07:55)
[2025-05-23] MEDS: NS (Normal Saline) 0.9% 1,000 ML IV SCH (09:33)
[2025-05-23] MEDS: INSULIN LISPRO (NovoLOG) PER UNIT SC SCH ×2 (09:34→21:00)
[2025-05-23] MEDS: HEPARIN SOD 5000 UNITS/ML 1 ML VIAL/SYRINGE SC SCH (09:34)
[2025-05-23 11:56] LABS: ESTIMATED AVERAGE GLUCOSE 249.0 MG/DL (60-110)
[2025-05-23 12:00] VITALS: BP 144/82; TEMP 97; O2SAT 96
[2025-05-23 12:06] LABS: SALICYLATE LEVEL < 3.0 MG/DL (<30); VITAMIN B12 LEVEL 542 PG/ML (211-911)
[2025-05-23] MEDS: FERROUS SULFATE 325 MG TAB PO SCH (13:26)
[2025-05-23] MEDS: ASPIRIN 81 MG ENTERIC TABLET PO SCH (13:26)
[2025-05-23] MEDS: ATORVASTATIN 20 MG TAB PO SCH (13:26)
[2025-05-23 17:52] VITALS: BP 138/67; TEMP 98.2; O2SAT 97
[2025-05-23 20:24] VITALS: BP 122/71; TEMP 97.7; O2SAT 97
[2025-05-23] MEDS: ENALAPRIL MALEATE 10 MG TAB PO SCH (20:59)
[2025-05-23] MEDS: VITAMIN D 1,000 INTERNATIONAL UNITS TABLET PO SCH (20:59)
[2025-05-23] MEDS: CYANOCOBALAMIN 500 MCG TAB PO SCH (20:59)
[2025-05-23] MEDS: FAMOTIDINE 20 MG TAB PO SCH (20:59)
[2025-05-23] MEDS: LanTUS (INSULIN GLARGINE INJ) 1 UNITS/0.01 ML SC SCH (21:00)
[2025-05-24 04:07] VITALS: BP 132/59; TEMP 97.9; O2SAT 98
[2025-05-24] MEDS: cefTRIAXone SOD 1 GM in DEXTROSE 5% (D5W) ADV/MINI-BAG 50 ML IV SCH (04:10)
[2025-05-24 06:49] LABS: PLATELET COUNT, AUTOMATED 158 10^3/uL (150-450)
[2025-05-24 07:41] LABS: CALCIUM LEVEL 7.6 MG/DL (8.3-10.6); CARBON DIOXIDE LEVEL 24.0 MMOL/L (20-31); CHLORIDE LEVEL 110.0 MMOL/L (98-107); CREATININE FOR GFR 1.0 MG/DL (0.55-1.30); GLOMERULAR FILTRATION RATE 59.5 (>39); MAGNESIUM LEVEL 1.6 MG/DL (1.8-2.4); POTASSIUM SERUM 3.9 MMOL/L (3.5-5.1); SODIUM LEVEL 142.0 MMOL/L (136-145)
[2025-05-24 09:00] VITALS: BP 115/84
[2025-05-24] MEDS ORDERED: SULF-8 PO (11:44)
[2025-05-24] MEDS: MAG SULF 1GM/100ML (MAG RUN) 1 GM in IV 1 EA IV SCH (12:29)
[2025-05-24 12:55] VITALS: BP 127/68; TEMP 98.2; O2SAT 98
[2025-05-24] MEDS: BACTRIM 160MG/800MG DS TAB PO ONE (15:36)
== END 2025-05-24 15:47 | disposition home or self-care (01) | DRG 689 ==
LOC: EDBD 23:53 → M ED 23:53 → M ED INP 05-23 04:53 → M MSPAV 05-23 17:42
PROVIDERS: ADMIT Student in an Organized Health Care Education/Training Program; ATTEND Student in an Organized Health Care Education/Training Program
DX: N39.0 Urinary tract infection, site not specified (principal); G93.41 Metabolic encephalopathy; N18.30 Chronic kidney disease, stage 3 unspecified; I12.9 Hypertensive chronic kidney disease with stage 1 through stage 4 chronic kidney disease, or unspecified chronic kidney disease; E11.22 Type 2 diabetes mellitus with diabetic chronic kidney disease; E78.5 Hyperlipidemia, unspecified; R41.82 Altered mental status, unspecified; K21.9 Gastro-esophageal reflux disease without esophagitis; E53.8 Deficiency of other specified B group vitamins; Z96.651 Presence of right artificial knee joint; D50.9 Iron deficiency anemia, unspecified; E55.9 Vitamin D deficiency, unspecified; M85.80 Other specified disorders of bone density and structure, unspecified site; Z87.891 Personal history of nicotine dependence; E66.9 Obesity, unspecified; Z91.018 Allergy to other foods; Z79.899 Other long term (current) drug therapy; Z79.82 Long term (current) use of aspirin